=== PATIENT | male | born 1950 | race Caucasian/White ===

== ENCOUNTER 2023-09-10 05:00 | Observation (INO) ==
--- NOTE | 2023-08-15 12:57 | PAT Medication Instructions ---
Medication Instructions Date of Service August 15, 2023 Home Medications atorvastatin 40 mg tablet 40 mg PO HS cholecalciferol (vitamin D3) 125 mcg (5,000 unit) tablet (Vitamin D3) 125 mcg PO Q7D glipizide 10 mg tablet 20 mg PO QAM lisinopril 5 mg tablet 5 mg PO QAM metformin 500 mg tablet 1,000 mg PO BID repaglinide 2 mg tablet 2 mg PO QPM semaglutide 1 mg/dose (2 mg/1.5 mL) subcutaneous pen injector (Ozempic) 1 mg subcut Q7D sodium bicarbonate 650 mg tablet 650 mg PO TID STOP 7 days before surgery semaglutide 1 mg/dose (2 mg/1.5 mL) subcutaneous pen injector (Ozempic) 1 mg subcut Q7D DO NOT take the morning of surgery cholecalciferol (vitamin D3) 125 mcg (5,000 unit) tablet (Vitamin D3) 125 mcg PO Q7D glipizide 10 mg tablet 20 mg PO QAM lisinopril 5 mg tablet 5 mg PO QAM metformin 500 mg tablet 1,000 mg PO BID sodium bicarbonate 650 mg tablet 650 mg PO TID Take evening before surgery atorvastatin 40 mg tablet 40 mg PO HS metformin 500 mg tablet 1,000 mg PO BID repaglinide 2 mg tablet 2 mg PO QPM sodium bicarbonate 650 mg tablet 650 mg PO TID Other Notes NOTHING TO EAT OR DRINK AFTER MIDNIGHT. If you have any questions please call us at [phone] or [phone] or [phone] or [phone]
--- NOTE | 2023-08-18 11:54 | Anesthesiology Consultation ---
Date of Service August 18, 2023 Assessment & Plan (1) Encounter for pre-operative examination: Plan - check BSG am DOS. - PONV: states has received scop in past, states he did not have scop patch for prostatectomy and did well. Independence decision making that anesthesiologist and patient will discuss options for devon-operative management. - Ozempic instructions: Patient takes on (). Patient informed at PAT visit to stop 7 days prior to surgery-voiced understanding. He states that he contacted his PCP and mutual decision making is that last dose will be 09/03/23 and alternative medication was not advised. Patient advised to check with prescriber on instructions on resuming Ozempic. He verbalized full understanding and denied questions or concerns. - Outpatient joint assessment: Patient is currently scheduled for inpatient pathway. If re-evaluated and patient/surgeon requests outpatient pathway, patient is not recommended candidate for outpatient joint program from anesthesia standpoint. Chart Review Chart Review: Acceptable Risk for Surgery and Patient seen in Pre Admission Testing Teaching & Discussion Pre-Anesthesia Teaching/Discussion Notes: Instructed NPO after midnight before surgery, except medications with 15 cc of water. Medication instructions provided according to the PAT guidelines. History Surgery Operation Date: 09/10/23 07:00 Proposed Procedures p Left Total Knee Arthroplasty - Jarrell Gruber MD Height/Weight Height: 5 ft 8 in Weight: 78.2 kg Allergies Allergy/AdvReac Type Severity Reaction Status Date / Time pioglitazone [From Actos] Allergy Intermediate rash Verified 08/15/23 14:37 bee venom protein (honey bee) Allergy Unknown Verified 08/15/23 14:37 ciprofloxacin Allergy Hives Verified 08/14/23 10:07 potassium citrate Allergy hives and Verified 08/14/23 10:07 [From Urocit-K 5] blisters Medications Home Medications Medication Instructions Recorded Confirmed Last Taken atorvastatin 40 mg tablet 40 mg PO HS 08/14/23 08/14/23 Unknown cholecalciferol (vitamin D3) 125 125 mcg PO Q7D 08/14/23 08/14/23 Unknown mcg (5,000 unit) tablet (Vitamin D3) glipizide 10 mg tablet 20 mg PO QAM 08/14/23 08/14/23 Unknown lisinopril 5 mg tablet 5 mg PO QAM 08/14/23 08/14/23 Unknown metformin 500 mg tablet 1,000 mg PO BID 08/14/23 08/14/23 Unknown repaglinide 2 mg tablet 2 mg PO QPM 08/14/23 08/14/23 Unknown semaglutide 1 mg/dose (2 mg/1.5 1 mg subcut Q7D 08/14/23 08/14/23 Unknown mL) subcutaneous pen injector (Ozempic) sodium bicarbonate 650 mg tablet 650 mg PO TID hyperuricemia 08/14/23 08/14/23 Unknown Past Medical History Medical History (Updated 08/18/23 @ 12:11 by Melvi Irizarry PA-C) Diabetes mellitus, type 2 NIDDM Essential tremor stable per pt GERD (gastroesophageal reflux disease) occasional, stable per pt History of blood transfusion 1960s History of COVID-19 07/2022, home test, mild symptoms>no current symptoms History of skin cancer removed rt ear Hx of prostatic malignancy dx 2021, sx tx Hx of renal calculi last episode 10/01 Hypercholesteremia Hypertension controlled, stable per pt Hyperuricemia hx of uremic acid stones Nausea and vomiting after administration of anesthetic agent years ago, no recent issues with recent sx. states has received scop in past, states he did not have scop patch for prostatectomy and did well. Slow to wake up after anesthesia denies re-intubation or unanticipated extended intubation Patient denies h/o stroke, seizures, heart attack, heart failure, or blood clots/DVTs. Exercise / Class Metabolic Activity II 4-5 Yardwork/Stairs/Walk up hill (denies chest discomfort or shortness of breath with 1 FOS) Past Surgical History Surgical History (Updated 08/18/23 @ 12:10 by Melvi Irizarry PA-C) H/O sinus surgery History of prostatectomy robotic procedure; dx cancer 2021, [facility] Hx of colonoscopy Hx of knee surgery x4, 1 open, 3 arthroscopic S/P cystoscopy with ureteral stent placement w/laser lithotripsy of stones Past Anesthesia History Other (slow to wake after anesthesia; patient unsure of daughter's devon- operative considerations-I contacted the daughter who states she has been told she has a difficult airway and I could access her chart: difficult airway is noted on her chart.) History of PONV History of PONV (states has received scop in past, states he did not have scop patch for prostatectomy and did well.) and Hx of Motion Sickness Social History Smoking Status: Never smoker Do You Dip or Chew Tobacco: No Hx Alcohol Use: Yes Alcohol type: beer alcohol intake frequency: holidays/special occasions only Hx Substance Use: No substance use type: does not use Review of Systems Patient denies chest pain, shortness of breath, dyspnea on exertion, snoring, witnessed apneas, fever, chills, cough, wheezing, or palpitations. Physical Exam Vital Signs Vitals BP 146/80 P 79 TEMP 97.9 SP02 97% on RA RESP 17 Physical Patient resting comfortably in chair in no acute distress, alert and oriented, responding appropriately throughout visit Full cervical extension range of motion without pain TMD 3.5 finger breadths Mallampati Score 2 Dentition: intact, denies chipped or loose teeth, caps/crowns, implants or bridges Lungs: normal respiratory effort. Good air movement, clear throughout to auscultation, no adventitious breath sounds Cardiac: regular rate and rhythm, no murmurs noted Carotid arteries: negative bruit bilat Lab Results Anesthesia Preop Results Results Anesthesia Widget: WBC 6.92 K/ul (4.8-10.8) 08/18/23 Hgb 13.1 g/dl (14.0-18.0) L 08/18/23 Hct 38.7 % (42.0-52.0) L 08/18/23 Plt 178 K/uL (130-400) 08/18/23 Na 138 mmol/L (136-145) 08/18/23 K 4.4 mmol/L (3.5-5.1) 08/18/23 Cl 104 mmol/L (98-107) 08/18/23 CO2 27 mmol/L (21-32) 08/18/23 BUN 18 mg/dl (6-23) 08/18/23 Creat 0.91 mg/dl (0.6-1.4) 08/18/23 Glucose Level 222 mg/dl (70-99(Fasting)) H 08/18/23 PT 11.1 Seconds (9.0-12.0) 08/18/23 PTT 26.2 Seconds (21.0-31.0) 08/18/23 INR 1.0 (0.9-1.1) 08/18/23 Urine Color Yellow 08/18/23 Urine Appearance Clear (Clear) 08/18/23 Urine pH 5.0 (4.5-7.5) 08/18/23 Urine Specific [place] 1.024 (1.000-1.030) 08/18/23 Urine Protein Negative (Negative) 08/18/23 Urine Glucose (UA) 3+ (Negative) H 08/18/23 Urine Ketones Negative (Negative) 08/18/23 Urine Blood Negative (Negative) 08/18/23 Urine Nitrite Negative (Negative) 08/18/23 Urine Bilirubin Negative (Negative) 08/18/23 Urine Urobilinogen Negative (Negative) 08/18/23 Urine Leukocyte Esterase Negative (Negative) 08/18/23 Blood Type O Negative 08/18/23 Antibody Screen NEGATIVE 08/18/23 Testing Electrocardiogram Date: 08/18/23 NSR, rate 76 bpm Chest X-Ray Date: 08/18/23 No acute process
[2023-09-10] MEDS ORDERED: LR 500ML BOLUS, THEN 15ML/HR IV SCH (06:00)
[2023-09-10] MEDS ORDERED: ROPIVACAINE 0.5% HCL/PF 150 MG, BUPIVACAINE 0.75% MPF 20 ML, EPINEPHrine 0.15 MG, Ketor... INFIL SCH (06:00)
[2023-09-10] MEDS ORDERED: ceFAZolin 2000MG 2,000 MG/15 ML SYR IV SCH (06:00)
[2023-09-10] MEDS ORDERED: TRANEXAMIC ACID 1,000 MG **IV Pre-op IV SCH (06:00)
[2023-09-10] MEDS ORDERED: LR 60ML/HR IV SCH (06:00)
[2023-09-10] MEDS ORDERED: ORTHO JOINT ANESTHETIC ONE (06:31)
--- NOTE | 2023-09-10 06:31 | History & Physical Bridge Note ---
Date of Service September 10, 2023 History & Physical Bridge Note I have examined the patient, reviewed the History & Physical and in the interval since the performance of the History & Physical I have noted the following changes of clinical significance:consent and site obtained and verified. no changes noted
[2023-09-10] MEDS ORDERED: BUPIVACAINE 0.5 % 5 MG/1 ML PF 10ML VIAL ONE (06:33)
[2023-09-10] MEDS ORDERED: PROPOFOL IV EMULSION 10 MG/ML 20 ML VIAL IV ONE (06:33)
[2023-09-10] MEDS ORDERED: MIDAZOLAM HCL 1 MG/ML 2ML VIAL ONE (06:33)
[2023-09-10] MEDS ORDERED: fentaNYL citrate PF 100 MCG/2 ML VIAL ONE (06:33)
[2023-09-10] MEDS ORDERED: EPINEPHrine INJ 1 MG/ML AMP ONE (06:33)
[2023-09-10] MEDS ORDERED: ROPIVACAINE 0.5% 5 MG/ML 30 ML VIAL ONE (06:34)
[2023-09-10] MEDS ORDERED: HYDROmorphone INJ 1 MG/ML SYRINGE IV PRN (06:59)
[2023-09-10] MEDS ORDERED: NALOXONE HCL 0.4 MG/1 ML VIAL/CARP IV PRN ×2 (06:59→10:29)
[2023-09-10] MEDS ORDERED: fentaNYL citrate PF 100 MCG/2 ML VIAL IV PRN (06:59)
[2023-09-10] MEDS ORDERED: ATROPINE SULFATE 0.1 MG/ML 10ML SYR IV PRN (06:59)
[2023-09-10] MEDS ORDERED: FLUMAZENIL 0.1 MG/1 ML 10 ML VIAL IV PRN (06:59)
[2023-09-10] MEDS ORDERED: PROMETHAZINE HCL 12.5 MG in SODIUM CHLORIDE 0.9% 50 ML IV PRN (06:59)
[2023-09-10] MEDS ORDERED: ePHEDrine sulfate 50 MG/ML AMP IV PRN (06:59)
[2023-09-10] MEDS ORDERED: TRANEXAMIC ACID / 0.7% NACL 1000MG/100ML BAG IV ONE (07:23)
[2023-09-10] MEDS ORDERED: ONDANSETRON INJ 2 MG/ML 2 ML VIAL ONE (07:23)
[2023-09-10] MEDS ORDERED: TRANEXAMIC ACID / 0.7% NACL 1,000 MG/100 ML BAG IV SCH ×2 (07:32→15:00)
[2023-09-10] MEDS ORDERED: PHENYLEPHRINE 100MCG/ML 5ML SYR ONE (08:02)
[2023-09-10] MEDS ORDERED: TRANEXAMIC ACID 100 MG/ML 10 ML VIAL IV ONE (08:16)
--- NOTE | 2023-09-10 08:28 | Post Operative Brief Note ---
Immediate Post Op Note v1 Date of Surgery September 10, 2023 Pre & Post Diagnosis Operation Date: 09/10/23 07:00 Pre-Op Diagnosis: Left Knee Degenerative Joint Disease Post-Op Diagnosis: Left Knee Degenerative Joint Disease I identified the patient and participated in the time-out.: Yes Procedure Operation Date: 09/10/23 07:00 Actual Procedures p Left Total Knee Arthroplasty(Left) - Jarrell Gruber MD Surgeon Jarrell Gruber MD [employer] [facility] Est[facility] Blood Loss 25 Findings Consistent with Post-Op Diagnosis Severe lateral compartment disease severe patellofemoral disease moderate medial disease Fluids See anesthesia record Complications None
--- NOTE | 2023-09-10 08:33 | Operative Report ---
Post Operative Report Pre & Post Diagnosis Operation Date: 09/10/23 07:00 Pre-Op Diagnosis: Left Knee Degenerative Joint Disease Post-Op Diagnosis: Left Knee Degenerative Joint Disease I identified the patient and participated in the time-out.: Yes Procedure Operation Date: 09/10/23 07:00 Actual Procedures p Left Total Knee Arthroplasty(Left) - Jarrell Gruber MD Surgeon Jarrell Gruber MD Hide And Skin Classer Janice Estimated Blood Loss 25 Findings Consistent with Post-Op Diagnosis Severe disease laterally and in the patellofemoral joint moderate disease medially flexion contracture of about 10 degrees Fluids See anesthesia report Specimens Bone Drains None Complications None Indications Severe pain and limitations of motion Description of Procedure After the patient was appropriate notified site verify consent verified the left lower extremity was examined revealing flexion contracture 10 degrees flexion to 105 degrees stable ligaments marked the skin was healthy. He was then prepped and draped use routine fashion. Tourniquet was inflated to 275 mmHg after exsanguination limb with a rubber band for total of 50 minutes. Midline exposure was utilized parapatellar throughout any performed synovectomy completed. There was marked incarceration of the patellofemoral joint as needed required releasing of all the soft tissue once this was done the patella could be everted the knee could be flexed. Synovectomy was completed. Osteophytes resected. Cruciates resected tibia subluxated membrane and menisci resected. Distal femur was then resected 14 mm proximal tibia 4 mm. The tibia was sized anywhere from a 4 to a 3. The femur was then sized it was very wide medial laterally but narrow anterior to posterior so 2-1/2 was selected so the notch the anterior cortex of the femur. Once this was done the extension gap was checked after the 4 mm of the left proximal tibia were resected and it was noted to be excellent. Once that was set the remaining anterior posterior, chamfer cuts were then made and the flexion gap checked and was excellent. Box cut was then made to size 2 half femur fit well. The tibia was then selected for size 3 so it would match the femur with a 2-1/2 spacer. Some osteophytes along the medial margin were then resected. Size 3 was then reduced with a 2-1/2 spacer 10 mm thick in the alignment the leg was excellent the flexion gap was excellent the flexion stability was excellent the patella tracked well. The patella was resected leaving 14 mm a 38 seating trial placed. It tracked well. Knee was then injected with Ortho mix about the knee irrigated with Betadine and Pulsavac and then a permanent cemented into position tibia femur patella in that order a 12 minutes the tourniquet was deflated at 14 minutes the knee was inspected for cement removal which did not require any. Some bone wax was placed about the exposed bone medially laterally on the femur due to the need for 2-1/2 size. There was minimal bleeding. EBL was roughly 25 cc crystalloid per anesthesia bone pathology pending. After 12 minutes again the tourniquet was deflated after 40 minutes everything was inspected. Summary of implant size 2 and half left femur posterior cruciate substituting size 2-1/2 tibial insert 10 mm thick size 3 mobile-bearing tray patella is a size 38 2 bags of Palacos G cement. DVT prophylaxis per protocol. I attest to the content of the Intraoperative Record and any orders documented therein. Any exceptions are noted below.
--- NOTE | 2023-09-10 08:36 | Discharge Summary ---
Date of Service September 11, 2023 Admission HPI Per Admitting Provider Severe left knee pain greater than right knee pain x-rays with severe disease bilaterally. Principal Diagnosis Osteoarthritis left knee with flexion contracture Discharge Data Allergies Allergy/AdvReac Type Severity Reaction Status Date / Time bee venom protein (honey bee) Allergy Severe anaphyllact Verified 09/10/23 05:42 ics pioglitazone [From Actos] Allergy Intermediate rash Verified 09/10/23 05:42 ciprofloxacin Allergy Hives Verified 09/10/23 05:42 potassium citrate Allergy hives and Verified 09/10/23 05:42 [From Urocit-K 5] blisters Vaccinations None Consultations None Procedures Performed Operation Date: 09/10/23 07:00 Actual Procedures p Left Total Knee Arthroplasty cemented (Left) - Jarrell Gruber MD Ordered Studies 09/10/23 05:00 US - OR guided needle placemen Routine Hospital Course (1) Status post left knee replacement: Home with services Plan Hospital course for a total knee replacement was discharged with services. DVT prophylaxis per protocol. Likely discharge tomorrow if does well overnight Total Time Total Time Spent Total Time Spent (In Minutes): 5 minutes Discharge Plan Discharge Items Patient Disposition: Home - Home Health Services Reason For Visit: Left Knee Degenerative Joint Disease Discharge Diagnosis: Left knee s/p total knee replacement Condition on Discharge: Good Activity: Per Instructions section Lifting: Wait until after follow-up appointment Bathing: Keep incision dry Exercise/Sports: Wait until after follow-up appointment Driving/Machine Use: No driving until cleared by Dr. Gruber Weightbearing: Full weightbearing Non-emergency contact: Surgeon Call non-emergency contact if: you have any medication questions, your pain is not controlled, your temperature is above 101, your wound has increased redness, your wound has increased drainage and your wound pain has increased Follow-up/Referrals: Disha Eduardo MD [Primary Care Provider] - Diet: Carb Count or DM1 Addtl Attending Provider Instructions: New Medicine: * You will likely be taking one or more of these medications: 1. Percocet - Take, as directed, when you need it, every four to six hours to control your pain. 2. Iron Sulfate - Take 1x each day for the month after surgery to help you replace the blood lost during surgery. 3. Eliquis - Thins your blood to lessen the chance of forming a blood clot. * The most common side effects of pain medicine and iron are nausea and constipation. If nausea or constipation is too much of a problem or if you have any questions about your new medicines or doses, call [facility] at . We will try to help you manage these issues. "VERY IMPORTANT TO READ AND REVIEW" Blood Clots and Blood Thinning Medicine: * You are given Eliquis during the immediate post-operative period to lessen the risk of blood clots forming in your legs and/or lungs. It is usually given for six weeks after surgery. Pain: * The immediate post-operative period after knee replacement surgery is often quite painful. * You are given a prescription for pain medicine. You should take it, as directed, when you need it, especially before physical therapy and before going to bed. Pain that interferes with sleep is very common and can last several months. * You will likely need pain medicine for the first four to six weeks. It will not stop all of the pain. The pain will lessen and as you feel better, you may change to milder pain medicine such as Tylenol. * The most common side effects of pain medicine are nausea and constipation, so don't take more than you need. Physical Therapy: * You will have physical therapy two or three times each week for four to six weeks after your surgery in order to regain your knee range of motion and to retrain your knee to work properly. * It is just as important to make sure you are getting your knee perfectly straight as it is to regain your knee bend. * Taking a pain pill an hour before therapy can help you have a more productive and comfortable therapy session if needed. Home Exercise: * You were shown a series of exercises (heel props, heel slides, etc.) in the hospital. Do these exercises three to four times each day including the exercises you were shown in physical therapy. Walking: * Get up and walk several times each day. For the first four weeks, try not to stand or walk for more than one hour at a time. If you do stand or walk for more than one hour, you will not hurt anything, but your knee and leg will likely swell. * As you feel comfortable, you may change from the walker or crutches to a cane and then to independent walking. SELF CARE INSTRUCTIONS AFTER TOTAL KNEE REPLACEMENT A. You may need to continue a physical therapy program after discharge from the hospital. There are several options available to you. Your doctor will assist you in selecting the best one for you. 1. An out-patient facility 2 to 3 times a week for therapy or home therapy. 2. Continue working on all exercises taught to you in the hospital. Your goals should be to increase bending of your knee to 90 degrees and beyond and to fully straighten your knee. B. You may progress at your own pace from walking with a walker or crutches to a cane; then to no assistive devices. C. Make walking a part of your daily routine. Be up as much as comfortable with rest periods throughout the day. Rest with leg elevation is very important. Use the ice wrap frequently for the first 3-4 weeks. D. There are no restrictions on activities. You may ride in a car, shop, p articipate in wood router hand and all social activities. E. Wear the long elastic stockings (YASMEEN hose) 20 hours a day for six weeks after surgery. They can be removed several times a day for laundering and for a shower. F. Do not place a pillow behind your knee when resting. A pillow at your ankle is okay. VERY IMPORTANT TO READ AND REVIEW A. Take Eliquis(blood thinning medication) as directed by your doctor. B. There are a few signs you need to watch for after you are home. Call [facility] if you notice any of the followin. Increased severe knee pain. Some pain is expected especially when you exercise. 2. Increased swelling in your leg or knee; pain or swelling of the calf muscle in either lower leg. 3. Any fluid drainage from the incision. 4. Shortness of breath or chest pain. C. Please call [facility] at if you have any concerns or questions about your operation or recovery. The doctor or his nurse will return your call promptly. D. You must take antibiotics before dental work, bladder, bowel or other surgery. Call the office to obtain a prescription at least 2 days prior to your appointment. * CALL IF INCREASED PAIN, REDNESS, DRAINAGE OR FEVER GREATER THAT 101. * Sutures should be removed 15 days after surgery unless you are on chronic steroids, then it will be 15-18 days after surgery. Call your doctor if: * Temperature above 101 degrees F. * Pain not relieved by pain medicine ordered. * Increased drainage or redness from incision. * Notify your doctor with any questions or concerns. Pending Studies at Discharge: Yes (Bone pathology) Stand-Alone Forms: [facility], Smoking Cessation Medications and DC Order Prescriptions: No Action atorvastatin 40 mg Tablet 40 mg PO HS metformin 500 mg Tablet 1,000 mg PO BID repaglinide 2 mg Tablet 2 mg PO QPM Patient Comments: w/supper Rx Instructions: administer within 30 minutes of a meal or snack glipizide 10 mg Tablet 20 mg PO QAM sodium bicarbonate 650 mg Tablet 650 mg PO TID lisinopril 5 mg Tablet 5 mg PO QAM cholecalciferol (vitamin D3) [Vitamin D3] 125 mcg (5,000 unit) Tablet 125 mcg PO Q7D Patient Comments: mondays w/supper Ozempic 1 mg/dose (2 mg/1.5 mL) Pen Injector 1 mg SUBCUT Q7D Patient Comments: Admission Data Admit Date/Time: 09/10/23 08:48 Attending Provider: Jarrell Gruber Admit Provider: Jarrell Gruber Primary Care Provider: Disha Eduardo
--- NOTE | 2023-09-10 08:37 | Orthopedic Progress Note ---
Date of Service September 10, 2023 Assessment & Plan (1) Status post left knee replacement: Plan: Home with services Admission and Anticipated Discharge Date Admission Date: Anticipated discharge date 10-02 Orthopedic Progress Note Did well tolerated total knee replacement well was awake and alert. Neurovascular check is limited by spinal. Vital signs are stable. Denies chest pain shortness of breath fever chills nausea vomiting or headache. Doing well status post total knee replacement check x-ray in recovery room.
--- NOTE | 2023-09-10 08:39 | Operative Report ---
Post Operative Report Pre & Post Diagnosis Operation Date: 09/10/23 07:00 Pre-Op Diagnosis: Left Knee Degenerative Joint Disease Post-Op Diagnosis: Left Knee Degenerative Joint Disease I identified the patient and participated in the time-out.: Yes Procedure Operation Date: 09/10/23 07:00 Actual Procedures p Left Total Knee Arthroplasty(Left) - Jarrell Gruber MD Surgeon TIANA Gruber MD Social Services Counselor Janice ROMO Estimated Blood Loss 25 Findings Consistent with Post-Op Diagnosis see operative report Specimens see operative report Drains none Complications none Disposition Accompanied Patient To Recovery: Yes Indications This 73 year old male presented to the office complaints of persisting left knee pain. He had tried conservative care measures including injection therapy, without improvement. He elected to proceed with surgical intervention after being educated about potential risks and outcomes. Preoperative imaging was obtained. Description of Procedure The patient was administered a spinal anesthetic and then taken to the operating room where he was given sedation. He was prepped and draped in the usual s terile fashion. Please see Dr. Gruber's operative report for specifics of the procedure. I was present for the entire case from initial patient positioning through final wound closure. Assistance was provided in tissue retraction, hemostasis, trial implant placement, final implant placement, and final wound closure. The patient was taken to the recovery room in satisfactory condition. I attest to the content of the Intraoperative Record and any orders documented therein. Any exceptions are noted below.
--- NOTE | 2023-09-10 09:23 | Anesthesiology Progress Note ---
Date of Service September 10, 2023 Anesthesia Post Procedure Vital Signs Vital Signs: Temp Pulse Resp BP Pulse Ox O2 Del Method O2 Flow Rate 09/10/23 09:05 68 15 102/59 L 98 Nasal Cannula 2 09/10/23 08:55 71 18 101/55 L 95 Room Air 09/10/23 08:45 73 15 111/65 95 Room Air 09/10/23 08:37 36.2 C L 79 12 110/66 96 Room Air 09/10/23 05:25 36.5 C 78 20 135/77 99 Room Air Pain Intensity Left Knee: Pain Intensity: 0 Transfer of Care Handoff Completed per policy Notes Mental Status: alert / awake / arousable Patient Amnestic to Procedure: Yes Nausea / Vomiting: adequately controlled Pain: adequately controlled Airway Patency, RR, SpO2: stable & adequate BP & HR: stable & adequate Hydration State: stable & adequate Neuraxial Anesthesia: was administered and sensory block is resolving Anesthetic Complications: no major complications apparent
--- NOTE | 2023-09-10 09:33 | XRay Report ---
TWO VIEWS LEFT KNEE CLINICAL HISTORY: Postoperative examination. FINDINGS: AP and crosstable lateral portable views of the left knee are obtained. A left knee arthrop lasty is in near anatomic alignment. There has been undersurface remodeling of the patella. No acute fracture is seen. There are expected postoperative changes around the knee including skin clips, soft tissue edema, and subcutaneous gas. IMPRESSION: Expected postoperative changes status post left knee arthroplasty. No acute fracture is s een. ACT 112: Negative or not required by law. Electronically signed by: Bartolo Martin M.D. 09/10/2023 9:30 AM
[2023-09-10] MEDS ORDERED: HYDROmorphone INJ 0.5 MG/0.5 ML SYR IV PRN (10:29)
[2023-09-10] MEDS ORDERED: ALUMINUM/MAGNESIUM SUSP 30 ML UDC PO PRN (10:29)
[2023-09-10] MEDS ORDERED: MAGNESIUM HYDROXIDE SUSP 30 ML UDC PO PRN (10:29)
[2023-09-10] MEDS ORDERED: bisacodyL 10 MG SUPP PR PRN (10:29)
[2023-09-10] MEDS ORDERED: ONDANSETRON INJ 2 MG/ML 2 ML VIAL IV PRN (10:29)
[2023-09-10] MEDS ORDERED: oxyCODONE HCL IR 5 MG TAB (IMMEDIATE RELEASE) PO PRN (10:29)
[2023-09-10] MEDS ORDERED: METOCLOPRAMIDE HCL INJ 5 MG/ML 2 ML VIAL IV PRN (10:29)
[2023-09-10] MEDS ORDERED: TAMSULOSIN HCL 0.4 MG CAP PO PRN (10:29)
[2023-09-10] MEDS ORDERED: diphenhydrAMINE 50 MG/ML VIAL IV PRN (10:29)
[2023-09-10] MEDS ORDERED: PHARMACY GLYCEMIC MGMT CONSULT PRN (10:29)
[2023-09-10] MEDS ORDERED: SODIUM CHLORIDE 0.9% 1,000 ML IV SCH (10:50)
[2023-09-10] MEDS: KETOROLAC TROMETHAMINE 15 MG/ML VIAL IV SCH ×3 (11:23→21:50)
[2023-09-10] MEDS: lisinopril 5 MG TAB PO SCH (11:38)
[2023-09-10] MEDS: DOCUSATE SODIUM 100 MG CAP PO SCH ×2 (11:39→19:41)
[2023-09-10] MEDS: MULTIVITAMIN TAB PO SCH (11:39)
[2023-09-10] MEDS: SODIUM BICARBONATE 650 MG TAB PO SCH ×3 (11:39→19:41)
[2023-09-10] MEDS: INSULIN ASPART PER UNIT CHARGE SC SCH ×3 (12:28→21:39)
[2023-09-10] MEDS: ACETAMINOPHEN 500 MG TAB PO SCH ×2 (13:22→21:49)
[2023-09-10] MEDS ORDERED: ORTHO WARFARIN NOMOGRAM SCH (14:00)
[2023-09-10] MEDS: ceFAZolin 2000MG 2,000 MG/15 ML SYR IV SCH ×2 (14:09→21:50)
--- NOTE | 2023-09-10 14:48 | Pharmacy Report ---
Pharmacy Glycemic Short Note 2 - Date of Service September 10, 2023 - Glycemic Short BSG Results (Last 24 hours): 09/10/23 09/10/23 09/10/23 05:27 08:39 10:47 POC Glucose 87 88 117 H OUTPATIENT ANTIDIABETIC REGIMEN: * Repaglinide 2mg (1 with breakfast, 1 with lunch, 2 with dinner) * Glipizide XL 10mg #2 QAM * Ozempic 1mg Q7d (through patient assistance) * metformin 500mg ER QAM ASSESSMENT: * Devan is a 73 YOM admitted s/p L TKA with a history of T2DM. Pharmacy has been consulted for glycemic management while inpatient. * Fasting BSG below goal range this AM, Ancef and ortho mix given during procedure, will add Lantus scale at bedtime for hyperglycemia * Initiated Novolog at a weight based stress of 2-3 PLAN FOR INPATIENT GLYCEMIC CONTROL: * Hold outpatient oral diabetes medications * Basal insulin * Lantus 0-10 units HS * Bolus insulin * NovoLog per scale ACHS or Q6hrs while NPO * Goal Range: Low 110 mg/dL - High 140 mg/dL * Correction Factor: 30 mg/dL/unit * Nutritional / Prandial insulin per carb ratio of 1 unit per 7 grams CHO consumed
--- NOTE | 2023-09-10 14:52 | Orthopedic Progress Note ---
Date of Service September 10, 2023 Assessment & Plan (1) Status post left knee replacement: Plan: Home with services Admission and Anticipated Discharge Date Admission Date: September 10, 2023 Orthopedic Progress Note Afternoon rounds check. He is doing well denies any real pain. He does note that the spinal was still not completely worn off. He is now able to lift his right leg is just starting to be able to lift his left leg. Still has weak dorsiflexion. Has tingling in the left leg greater than right leg but is diminishing. He denies any chest pain shortness of breath fever chills nausea vomiting or headache. Postop x-rays look excellent. Assessment doing well status post left total knee replacement spinal was taking its time to wear off. We will continue to wait to happen before we get him up and moving. He can start his bending exercises and his heel roll exercises to get his leg straight. We will saline lock his IV since he is doing well eating and drinking. Did well tolerated total knee replacement well was awake and alert. Neurovascular check is limited by spinal. Vital signs are stable. Denies chest pain shortness of breath fever chills nausea vomiting or headache. Doing well status post total knee replacement check x-ray in recovery room.
[2023-09-10] MEDS ORDERED: WARFARIN SOD 5 MG TAB PO SCH (16:00)
[2023-09-10] MEDS: ASCORBIC ACID 500 MG TAB PO SCH (16:40)
[2023-09-10] MEDS: FERROUS GLUCONATE 324 MG TAB PO SCH (16:40)
[2023-09-10] MEDS ORDERED: SENNA 8.6 MG TAB PO SCH (21:00)
[2023-09-10] MEDS ORDERED: LANTUS PER UNIT CHARGE SC SCH (21:00)
[2023-09-10] MEDS ORDERED: ATORVASTATIN 40 MG TAB PO SCH (21:00)
[2023-09-11] MEDS: ACETAMINOPHEN 500 MG TAB PO SCH (05:06)
[2023-09-11] MEDS: KETOROLAC TROMETHAMINE 15 MG/ML VIAL IV SCH (05:06)
[2023-09-11 06:41] LABS: Hematocrit (blood only) 31.5 % (42.0-52.0); Hemoglobin 10.9 g/dl (14.0-18.0); Mean Corpuscular Hemoglobin 30.2 pg (25.0-34.0); Mean Corpuscular Hgb Conc 34.6 g/dL (32.0-36.0); Mean Corpuscular Volume 87.3 fL (80.0-100.0); Platelet Count 140 K/uL (130-400); RDW Coefficient of Variation 13.2 % (11.5-14.5); RDW Standard Deviation 41.9 fL (36.4-46.3); Red Blood Count 3.61 M/uL (4.70-6.10); White Blood Count 12.16 K/ul (4.8-10.8)
[2023-09-11 06:58] LABS: BUN Creatinine Ratio 20.7 (10-20); Calcium 8.9 mg/dl (8.6-10.3); Creatinine Clr Calc Pharmacy 71.3 ml/min; Est GFR (African American) 96.6 ml/min; Est GFR (Non-African American) 83.4 ml/min; Potassium 4.2 mmol/L (3.5-5.1)
--- NOTE | 2023-09-11 07:35 | Orthopedic Progress Note ---
Date of Service September 11, 2023 Assessment & Plan (1) Status post left knee replacement: Plan: Home with services Plan Hospital course for a total knee replacement was discharged with services. DVT prophylaxis per protocol. Likely discharge tomorrow if does well overnight Admission and Anticipated Discharge Date Admission Date: September 10, 2023 Orthopedic Progress Note Postop day #1 status post left total knee replacement patient is doing well denies any chest pain shortness of breath fever chills nausea vomiting headache. Vital signs are stable he is afebrile. Neurovascular check femoral sciatic nerve is normal. Wound dressing clean dry and intact. Can do straight leg raise. Can do ankle pumps and extend and plantarflex toes. A.m. labs are good hematocrit stable at 31. Assessment doing well status post left total knee replacement continue with postop care pathway start Eliquis this morning. Dressing change later today this morning by PA. Discharge this morning after PT OT. Afternoon rounds check. He is doing well denies any real pain. He does note that the spinal was still not completely worn off. He is now able to lift his right leg is just starting to be able to lift his left leg. Still has weak dorsiflexion. Has tingling in the left leg greater than right leg but is diminishing. He denies any chest pain shortness of breath fever chills nausea vomiting or headache. Postop x-rays look excellent. Assessment doing well status post left total knee replacement spinal was taking its time to wear off. We will continue to wait to happen before we get him up and moving. He can start his bending exercises and his heel roll exercises to get his leg straight. We will saline lock his IV since he is doing well eating and drinking. Did well tolerated total knee replacement well was awake and alert. Neurovascular check is limited by spinal. Vital signs are stable. Denies chest pain shortness of breath fever chills nausea vomiting or headache. Doing well status post total knee replacement check x-ray in recovery room.
--- NOTE | 2023-09-11 07:36 | Operative Report ---
Post Operative Report Procedure Date: September 11, 2023 Pre & Post Diagnosis: Addendum to previous operative report pre and postop diagnosis same osteoarthritis] Time Out: I identified the patient and participated in the time-out. Procedure: [Cemented left total knee replacement] Surgeon: Aviva] Production Machine Shop Supervisor: Janice no resident or fellow available [] Estimated Blood Loss: See previous report [] Findings: [See previous report] Specimens: [See previous report] Description of Procedure: [See previous report] Attestation: I attest to the content of the Intraoperative Record and any orders documented therein. Any exceptions are noted below.
[2023-09-11] MEDS: lisinopril 5 MG TAB PO SCH (08:35)
[2023-09-11] MEDS: INSULIN ASPART PER UNIT CHARGE SC SCH (08:35)
[2023-09-11] MEDS: FERROUS GLUCONATE 324 MG TAB PO SCH (08:36)
[2023-09-11] MEDS: MULTIVITAMIN TAB PO SCH (08:37)
[2023-09-11] MEDS: DOCUSATE SODIUM 100 MG CAP PO SCH (08:37)
[2023-09-11] MEDS: SODIUM BICARBONATE 650 MG TAB PO SCH (08:38)
[2023-09-11] MEDS: ASCORBIC ACID 500 MG TAB PO SCH (08:38)
[2023-09-11] MEDS ORDERED: APIXABAN 2.5 MG TAB PO SCH (09:00)
--- NOTE | 2023-09-11 09:00 | Orthopedic Progress Note ---
Date of Service September 11, 2023 Assessment & Plan (1) Status post left knee replacement: Plan: The patient was educated regarding today's findings. Conservative care measures were discussed. His knee dressing was changed by me. He will leave this in place until Friday. It can be changed by home health at that point if there is soiling. It can also be left in place. Importance of keeping dressing dry was discussed. Konstantin stocking was applied. Written discharge instructions were provided. Prescription for Percocet 5/325 mg and Eliquis 2.5 mg were sent to his pharmacy. Follow-up in the office with me in 2 weeks as scheduled for staple removal. Importance of using his knee immobilizer today and tomorrow was discussed. It can be discontinued entirely on Friday morning. Admission and Anticipated Discharge Date Admission Date: September 10, 2023 Subjective This 73-year-old male is seen today in his room. He is 1 day status post left total knee arthroplasty. He states he is doing well. He feels ready to go home. He has already been out of bed and walking in the hallway. He denies any chest pain, shortness of breath, nausea, vomiting, abdominal pain, or significant knee pain. He states his block did not wear off until late yesterday afternoon. No additional complaints. His daughter is present today. Review of Systems Review of Systems: unchanged from yesterday Physical Exam Physical Exam: General: Well-developed, well-nourished, elderly male, in no acute distress. Sitting in a bedside chair. Alert and oriented. Skin: Warm dry with good turgor. He has a postsurgical dressing in place on the left knee. Upon removal, there is a small amount of bloody drainage on the innermost dressings. There is no active bleeding from his wound. [place] are in place. Wound edges are well approximated. Minimal postoperative edema. No ecchymosis. Musculoskeletal: The patient has intact motor function of his hip, knee, and ankles. He is able to get himself out of the chair without difficulty. He is able to stand with his walker. He can perform a straight leg raise. He has full terminal extension. Flexion to around 60 degrees with ease. Neurologic: Gross sensation is intact across the left leg by soft touch. Peripheral pulses are 2+. Results & Data Vital Signs (Past 12 Hours) Vital Signs Temp Pulse Resp BP BP Pulse Ox O2 Del Method 09/11/23 07:45 36.5 C 73 14 116/64 96 Room Air 09/11/23 03:55 36.3 C L 75 16 108/64 97 Room Air 09/10/23 21:53 36.3 C L 68 18 127/68 97 Room Air Laboratory Results CBC obtained today shows a white count of 12.16. H&H of 10.9 and 31.5. Platelets 140,000. Sodium 137, potassium 4.2, chloride 106, anion gap of 6. BUN 19 and creatinine 0.92. Blood sugar this morning was 137.
[2023-09-11 09:27] LABS: Estimated Average Glucose 140 mg/dl; Hemoglobin A1C 6.5 % (4.5-5.6)
--- NOTE | 2023-09-11 09:59 | Operative Report ---
Post Operative Report Pre & Post Diagnosis Operation Date: 09/10/23 07:00 Pre-Op Diagnosis: Left Knee Degenerative Joint Disease Post-Op Diagnosis: Left Knee Degenerative Joint Disease I identified the patient and participated in the time-out.: Yes Procedure Operation Date: 09/10/23 07:00 Actual Procedures p Left Total Knee Arthroplasty(Left) - Jarrell Gruber MD Surgeon Jarrell Gruber MD Clothing Consultant Janice ROMO Estimated Blood Loss 25 Findings Consistent with Post-Op Diagnosis Specimens bone Complications none Indications pain Description of Procedure see other report I attest to the content of the Intraoperative Record and any orders documented therein. Any exceptions are noted below.
--- NOTE | 2023-09-11 10:19 | Operative Report ---
Post Operative Report Pre & Post Diagnosis Operation Date: 09/10/23 07:00 Pre-Op Diagnosis: Left Knee Degenerative Joint Disease Post-Op Diagnosis: Left Knee Degenerative Joint Disease I identified the patient and participated in the time-out.: Yes Procedure Operation Date: 09/10/23 07:00 Actual Procedures p Left Total Knee Arthroplasty(Left) - Jarrell Gruber MD Surgeon Jarrell Gruber MD Power Saw Operator Janice ROMO Estimated Blood Loss 25 Findings Consistent with Post-Op Diagnosis severe djd Specimens bone Drains none Complications none Indications pain/deformity Description of Procedure see other note I attest to the content of the Intraoperative Record and any orders documented therein. Any exceptions are noted below.
--- OUTSIDE RECORDS SUMMARY | 2023-09-17 17:10 | External Medical Summary | Continuity of Care Document ---
Author Name Unknown Organization [id number] Address [address] [place] [id number] Care Team Providers Care Public Service Representative Name Role Phone Disha Eduardo Primary Care Physician [phone] Encounter [facility] [id number] Date(s): 08/18/23 - 08/18/23 [facility] [address] [place], [place] [address] [address] [place] [id number] Encounter Diagnosis Bilateral primary osteoarthritis of knee(Discharge Diagnosis) - 08/18/23 Discharge Disposition: Home or Self Care Attending Physician: DEMETRIUS Camacho, Mohan Crocker Referring Physician: MD Gruber Wayne J Allergies, Adverse Reactions, Alerts Substance Reaction Severity Status ciprofloxacin Unknown Active Urocit-K hives Active Bee stings severe Severe Active Medications atorvastatin Start: 06/29/20 14:48:00 EDT Start Date: 06/29/20 Status: Ordered EpiPen 2-John Start: 11/22/19 10:51:00 EST Start Date: 11/22/19 Status: Ordered Euflexxa 10 mg/mL intra-articular solution Start: 06/18/21 9:15:00 EDT, 25 mg =, intra-articular, q7days, Disp# 2 mL Start Date: 06/18/21 Status: Ordered Euflexxa 10 mg/mL intra-articular solution Start: 09/30/22 10:35:00 EST, 20 mg =, intra-articular, q7days, Disp# 12 mL, Refills: 0, bilateral knees series of 3 Start Date: 09/30/22 Status: Ordered glipiZIDE 10 mg oral tablet, extended release Start: 11/22/19 10:52:00 EST, 1 tab, PO, Daily Start Date: 11/22/19 Status: Ordered lisinopril 5 mg oral tablet Start: 11/22/19 10:52:00 EST, 1 tab, PO, Daily Start Date: 11/22/19 Status: Ordered metFORMIN 500 mg oral tablet Start: 11/22/19 10:51:00 EST, 2 tab, PO, bid Start Date: 11/22/19 Status: Ordered Ozempic Start: 08/18/23 11:03:00 EDT Start Date: 08/18/23 Status: Ordered repaglinide Start: 06/29/20 14:48:00 EDT Start Date: 06/29/20 Status: Ordered sodium bicarbonate 650 mg oral tablet Start: 11/22/19 10:51:00 EST Start Date: 11/22/19 Status: Ordered Mental Status 08/18/23 Barriers to Learning one year None evide nt Mandatory Health Literacy Documentation Yes Health Literacy Communication Barriers N ever Primary Language Slovenian Problem List Condition Confirmation Course Effective Dates Status H ealth Status Informant Bilateral primary osteoarthritis of knee Confirmed Active Diagnosis Diagnosis Type Effective Dates Health Status Clinical Service Informant Bilateral primary osteoarthritis of knee Discharge Diagnosis 08/18/23 Vital Signs Most recent to oldest [Reference Range]: 1 Height 170 cm (08/18/23 11:04 AM) Patient Weight 78.4 kg (08/18/23 11:04 AM) Body Mass Index 27.13 kg/m2 (08/18/23 11:04 AM) Temperature [36.5-37.9 DegC] 36.2 DegC *LOW* (08/18/23 11:04 AM) Respiratory Rate 20 br/min (08/18/23 11:04 AM) Blood Pressure 146/78mmHg (08/18/23 11:04 AM) Cuff Pulse Pressure 68 mmHg (08/18/23 11:04 AM) Social History Social History Type Response Smoking Status Never smoked cigaret pattie Sex Male Pre-OP H & P * DEMETRIUS Camacho Cory D: PERFORM Event Display: Pre-OP H & P Authored Date: [id number] PRE-OPERATIVE HISTORY AND PHYSICAL Name: VERONICA ZHOU Patient Number: [id number] : 1950 Date of Service: 08/18/2023 PRE-OP Diagnosis: Left knee DJD Planned Procedure: Left knee total knee arthroplasty Chief Complaint: Left knee pain History of Present Illness (including history relevant to procedure): This 73-year-old male presents today for his preoperative history and physical. He is scheduled to undergo a left knee total kneearthroplasty on 09/10/2023. He has had increasing left knee pain over the last 3 years. He initiallydid well with viscosupplementation injections, but they are no longer working. He is unable to havecorticosteroid injections due to his diabetes. He has also tried OTC medications and activity modification without improvement. He elects to proceed with surgical intervention in hopes of improving his pain and function. He denies any catching or locking. No buckling. Pain is worse with weightbearing. It is affecting his ADLs. No numbness or tingling. Preoperative imaging has been obtained. Review Of Systems: A total of 10 systems are reviewed and are significant only for below stated conditions. Social history: Patient is . Retired. No tobacco use, rare EtOH use. Family history: Noncontributory. Past Medical History: Problems: Bilateral primary osteoarthritis of knee Insulin-dependent diabetes. Elevated cholesterol GERD Chronic low back pain History of kidney stones History of prostate cancer Procedure History Procedure Procedure Date Comments Right knee arthroscopy Left knee arthroscopy x3 Prostatectomy 2007 2000 Allergies and Sensitivities: Urocit-K(hives) ciprofloxacin(Unknown) Bee stings(severe) Current Home Meds: (Last Updated 08/18 11:03) EPINEPHrine (EpiPen 2-John) atorvastatin glipiZIDE (glipiZIDE 10 mg oral tablet, extended release) 10 mg PO Daily lisinopril (lisinopril 5 mg oral tablet) 5 mg PO Daily metFORMIN (metFORMIN 500 mg oral tablet) 1,000 mg PO bid repaglinide semaglutide (Ozempic) sodium bicarbonate (sodium bicarbonate 650 mg oral tablet) sodium hyaluronate (Euflexxa 10 mg/mL intra-articular solution) 25 mg intra- articular q7days sodium hyaluronate (Euflexxa 10 mg/mL intra-articular solution) 20 mg intra- articular q7days bilateral knees series of 3 Vitals: Last Updated 08/18/23 11:04 Weights: Last Updated 08/18/23 11:04 Date Temp Pulse BP RR SpO2 FIO2 Date Wt(kg) Wt(lb) 08/18 11:04 36.2 146/78 20 96 08/18 11:04 78.4 172 08/18 11:04 78.4 172 24 Hr Tmax: 36.2 at 08/18 11:04 Initial Wt: 08/18 78.4 kg 172 lb Physical Exam: (relevant to the procedure, including heart and lung evaluation) General: Well-developed, well-nourished, elderly male, in no acute distress. Sitting in his chair. Alert and oriented. HEENT: Normocephalic, atraumatic. Eyes PERRLA, EOMI. Nares patent bilaterally without turbinate enlargement. No drainage. Oropharynx without erythema or exudate. Uvula midline. Oral mucosa moist. Fair dentition. No bridges. Fillings are noted. Neck: No JVD. Cardiac: RRR, no MGR. Peripheral pulses are 2+. Lungs: Clear to auscultation bilaterally. No crackles, rhonchi, or wheezing. Good air movement. Abdomen: Bowel sounds present x4. Soft nontender. No organomegaly. No masses. Extremities: Left knee evaluation reveals a valgus stance. He lacks 5 to 10 degrees of terminal extension. Flexion to only around 95 degrees. Strength is 5/5 with good quad tone. Stable collateral ligaments. No palpable defect in the patellar tendon or quadriceps tendon. He has focal discomfort with palpation over the medial and lateral joint lines, with lateral being worse. Ambulating today withan antalgic gait. Neuro: Gross sensation is intact across the left leg by soft touch. Skin: Warm and dry with good turgor. No rashes. No ecchymosis or erythema. No intra-articular effusion. Studies of radiology results (relevant to the procedure): Radiographic imaging previously obtained was reviewed. The patient has end-stage DJD of both knees, worst on the left. He has a windswept presentation with valgus on the left and varus on the right. Periarticular osteophytes, subchondral sclerosis, and joint space narrowing are all present. ASSESSMENT: Left knee end-stage DJD Plan: Approximate 20 minutes was spent with the patient reviewing operative procedure, postoperative recovery, physical therapy requirements, and medication use. Postoperative prescriptions for Percocet and Coumadin will be provided at discharge from the hospital. Anticipate discharge to home with home health services. He states his daughter will be staying with him for a few days postoperatively. He has recently moved, and now is all on 1 floor with a long indoor hallway to get to his apartment. PDMP was checked and there are no concerning findings. He is aware of the COVID-19 risks associated with surgery. He is currently asymptomatic of any COVID-19 symptoms. He already has a walker. Postoperative follow-up appointment has been made with me on 09/25 for staple removal. He will attend PAT today for preoperative lab work, EKG, and chest x- ray. Medical clearance is scheduled for . This dictation has been completed using Calpian text voice recognition software. Grammatical errors, omissions, insertions, and misspellings may be present due to the limitations of the software. Electronic Signature on File Electronically Reviewed/Signed by: Mohan Camacho PA-C Author Signature Dt/Tm:08/18/2023 05:04 PM Division of Sports Medicine Electronically Reviewed/Signed by: Jarrell Gruber MD Cosigner Signature Dt/Tm: 08/19/2023 05:45 AM Lieutenant Fire Fighter for Clinical Affairs, [facility] [place] Professor in Orthopaedics International Trade Analyst, [facility] CDS Patient Care team information Care Team Personnel Name: MD Eduardo Nigelle S Position: Referring DIRECT Member Role: Primary Care Provider Address: Address: [address] [place], [place] [address] [id number] [place]
== END 2023-09-11 11:00 | disposition home health service (06) ==
LOC: ASU 05:00 → 3N 05:00

== ENCOUNTER 2024-09-15 05:09 | Observation (INO) ==
--- NOTE | 2024-09-07 09:28 | Anesthesiology Consultation ---
Date of Service September 07, 2024 Assessment & Plan (1) Encounter for pre-operative examination: Plan - check BSG am DOS. - semaglutide instructions: Patient informed by PAT RN to stop 7 days prior to surgery. - Outpatient joint assessment: Patient is currently scheduled for inpatient pathway. If re-evaluated and patient/surgeon requests outpatient pathway, patient is acceptable candidate for outpatient joint program from anesthesia standpoint pending surgeon's office assessment of pt motivation/support/completion of same day joint program preop requirements. - Per sr. consultant on 09/07/24: No known infectious disease contacts, current infectious disease symptoms in past 10 days or COVID positive test result in the past 30 days. Chart Review Chart Review: Acceptable Risk for Surgery and Patient NOT seen in Pre Admission Testing History Surgery Operation Date: 09/15/24 08:50 Proposed Procedures p Right Total Knee Arthroplasty - Jarrell Gruber MD Height/Weight Height: 5 ft 7 in Weight: 75.296 kg Allergies Allergy/AdvReac Type Severity Reaction Status Date / Time bee venom protein (honey bee) Allergy Severe Anaphylaxis Verified 09/07/24 08:30 ciprofloxacin Allergy Intermediate Hives Verified 09/07/24 08:30 pioglitazone [From Actos] Allergy Intermediate Rash Verified 09/07/24 08:30 potassium citrate Allergy Intermediate Hives, Verified 09/07/24 08:30 [From Urocit-K 5] blisters Medications Home Medications Medication Instructions Recorded Confirmed Last Taken atorvastatin 40 mg tablet 40 mg PO HS 08/14/23 09/07/24 01/21/24 21:30 cholecalciferol (vitamin D3) 125 125 mcg PO Q7D 08/14/23 09/07/24 01/19/24 mcg (5,000 unit) tablet (Vitamin D3) glipizide 10 mg tablet 20 mg PO QAM 08/14/23 09/07/24 01/21/24 10:00 lisinopril 5 mg tablet 5 mg PO QAM 08/14/23 09/07/24 01/21/24 10:00 metformin 500 mg tablet 1,000 mg PO QAM 08/14/23 09/07/24 01/21/24 21:30 semaglutide 1 mg/dose (2 mg/1.5 1 mg subcut Q7D 08/14/23 09/07/24 01/09/24 mL) subcutaneous pen injector (Ozempic) sodium bicarbonate 650 mg tablet 650 mg PO TID hyperuricemia 08/14/23 09/07/24 01/21/24 21:30 propranolol 10 mg tablet 10 mg PO TID 01/08/24 09/07/24 01/22/24 07:30 Past Medical History Medical History Bilateral primary osteoarthritis of knee (10/20/23) Diabetes mellitus, type 2 NIDDM Essential tremor Started on propranolol GERD (gastroesophageal reflux disease) occasional, stable per pt History of anemia not aware History of blood transfusion 1960s History of COVID-19 07/2022 (home test)- mild symptoms, resolved History of skin cancer removed right ear Hx of prostatic malignancy Dx 2021, s/p prostatectomy Hx of renal calculi Hypercholesteremia Hypertension controlled, stable per pt Hyperuricemia hx of uremic acid stones Right knee DJD (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/23) Past Surgical History Surgical History (Updated 09/07/24 @ 09:25 by Melvi Irizarry PA-C) H/O sinus surgery History of prostatectomy robotic procedure Hx of colonoscopy Hx of knee surgery Multiple knee scopes, Right TKR Nausea and vomiting after administration of anesthetic agent Remote hx years ago, no recent issues with recent sx States has received scop in past, states he did not have scop patch for prostatectomy and did well S/P cystoscopy with ureteral stent placement x2 w/laser lithotripsy of stones, most recent cysto/stent (12/25/23): MAC at [facility] Status post left knee replacement (12/04/23) Social History Smoking Status: Never smoker Do You Dip or Chew Tobacco: No Hx Alcohol Use: Yes Alcohol type: beer alcohol intake frequency: holidays/special occasions only Hx Substance Use: No substance use type: does not use Lab Results Anesthesia Preop Results Results Anesthesia Widget: WBC 7.11 K/ul (4.8-10.8) 08/23/24 Hgb 14.0 g/dl (14.0-18.0) 08/23/24 Hct 43.1 % (42.0-52.0) 08/23/24 Plt 187 K/uL (130-400) 08/23/24 Na 140 mmol/L (136-145) 08/23/24 K 4.2 mmol/L (3.5-5.1) 08/23/24 Cl 107 mmol/L (98-107) 08/23/24 CO2 27 mmol/L (21-32) 08/23/24 BUN 24 mg/dl (6-23) H 08/23/24 Creat 1.16 mg/dl (0.6-1.4) 08/23/24 Glucose Level 149 mg/dl (70-99(Fasting)) H 08/23/24 PT 10.3 Seconds (9.0-12.0) 08/23/24 PTT 26 Seconds (21-31) 08/23/24 INR 0.9 (0.9-1.1) 08/23/24 HA1c 6.3 % (4.5-5.6) H 08/23/24 Urine Color Yellow 08/23/24 Urine Appearance Clear (Clear) 08/23/24 Urine pH 5.0 (4.5-7.5) 08/23/24 Urine Specific [place] 1.023 (1.000-1.030) 08/23/24 Urine Protein Negative (Negative) 08/23/24 Urine Glucose (UA) Negative (Negative) 08/23/24 Urine Ketones Negative (Negative) 08/23/24 Urine Blood Negative (Negative) 08/23/24 Urine Nitrite Negative (Negative) 08/23/24 Urine Bilirubin Negative (Negative) 08/23/24 Urine Urobilinogen Negative (Negative) 08/23/24 Urine Leukocyte Esterase Negative (Negative) 08/23/24 Blood Type O Negative 08/23/24 Antibody Screen NEGATIVE 08/23/24 Testing Electrocardiogram Date: 08/23/24 NSR, rate 64 bpm Chest X-Ray Date: 08/23/24 No active disease in the chest. Other Testing Abdomen pelvis CT 12/25/23 1. 5 mm distal left ureteral calculus which results in moderate left hydrourete ronephrosis with perinephric and periureteral stranding and fluid. 2. Several punctate bilateral renal calculi.
[2024-09-15] MEDS: LR 500ML BOLUS, THEN 15ML/HR IV SCH (06:00)
[2024-09-15] MEDS: LR 60ML/HR IV SCH (06:10)
[2024-09-15] MEDS ORDERED: ROPIVACAINE 0.5% 5 MG/ML 30 ML VIAL ONE (06:25)
--- NOTE | 2024-09-15 06:33 | History & Physical Bridge Note ---
Date of Service September 15, 2024 History & Physical Bridge Note I have examined the patient, reviewed the History & Physical and in the interval since the performance of the History & Physical I have noted the following changes of clinical significance:consent and site verified. no changes noted
[2024-09-15] MEDS ORDERED: PROPOFOL IV EMULSION 10 MG/ML 20 ML VIAL IV ONE (06:37)
[2024-09-15] MEDS ORDERED: MIDAZOLAM HCL 1 MG/ML 2ML VIAL ONE (06:37)
[2024-09-15] MEDS ORDERED: LIDOCAINE 2% 2 ML VIAL/AMP(20MG/ML) INFIL ONE (06:37)
[2024-09-15] MEDS ORDERED: ONDANSETRON INJ 2 MG/ML 2 ML VIAL ONE (06:37)
[2024-09-15] MEDS ORDERED: fentaNYL citrate PF 100 MCG/2 ML VIAL ONE (06:38)
[2024-09-15] MEDS ORDERED: DEXAMETHASONE SOD INJ 4 MG/ML VIAL ONE (06:38)
[2024-09-15] MEDS ORDERED: ePHEDrine sulfate 50 MG/ML AMP IV PRN (06:41)
[2024-09-15] MEDS ORDERED: ONDANSETRON INJ 2 MG/ML 2 ML VIAL IV PRN ×2 (06:41→09:36)
[2024-09-15] MEDS ORDERED: ATROPINE SULFATE 0.1 MG/ML 10ML SYR IV PRN (06:41)
[2024-09-15] MEDS ORDERED: fentaNYL citrate PF 100 MCG/2 ML VIAL IV PRN (06:41)
[2024-09-15] MEDS ORDERED: HYDROmorphone INJ 1 MG/ML SYRINGE IV PRN (06:41)
[2024-09-15] MEDS: TRANEXAMIC ACID 1,000 MG **IV Pre-op IV SCH (06:46)
[2024-09-15] MEDS: ceFAZolin 2000MG 2,000 MG/15 ML SYR IV SCH ×2 (06:57→14:32)
[2024-09-15] MEDS: ORTHO JOINT ANESTHETIC ONE (07:26)
[2024-09-15] MEDS: TRANEXAMIC ACID 1,000 MG **IV Intra-op IV SCH (08:03)
[2024-09-15] MEDS: ROPIV 0.5% 246mg, Ketorolac 30mg, EPINEPHrine 0.5mg in NSS INFIL SCH (08:08)
--- NOTE | 2024-09-15 08:27 | Post Operative Brief Note ---
Immediate Post Op Note Date of Surgery September 15, 2024 Pre & Post Diagnosis Operation Date: 09/15/24 07:00 Osteoarthritis right knee with flexion varus deformity pre and postop diagnosis same I identified the patient and participated in the time-out.: Yes Procedure Operation Date: 09/15/24 07:00 <No data on this case meets the specified criteria> Right total knee replacement Surgeon Jarrell Gruber MD [employer]/ Estimated Blood Loss 25 Findings Consistent with Post-Op Diagnosis Osteoarthritis right knee with flexion varus deformity significant disease medial compartment patellofemoral compartment Fluids 1100 cc Complications None
--- NOTE | 2024-09-15 08:30 | Operative Report ---
Post Operative Report Pre & Post Diagnosis Operation Date: 09/15/24 07:00 <No data on this case meets the specified criteria> I identified the patient and participated in the time-out.: Yes Procedure Operation Date: 09/15/24 07:00 <No data on this case meets the specified criteria> Osteoarthritis right knee with flexion varus deformity Surgeon Jarrell Gruber MD Barrel Straight[employer]i/ Estimated Blood Loss 25 Findings Consistent with Post-Op Diagnosis Severe medial compartment disease and patellofemoral disease Fluids 1100 cc Specimens Bone Drains None Complications None Indications Severe pain failed conservative management x-rays with marked disease Description of Procedure After the patient was appropriate notified site verified consent verified ant ibiotics confirmed to be given the right lower extremity was prepped and draped use routine fashion. Tourniquet was inflated to 275 mmHg after exsanguination limb with a rubber bandage for total of 48 minutes. Midline exposure was utilized parapatellar arthrotomy was performed. Synovectomy was completed osteophytes resected. Distal femur was entered. Cruciates resected tibia subluxated menisci resected. Distal femur resected 12 mm proximal tibia 4 mm the extension gap was excellent. Tibia was sized to a 5 femur to a 4 appropriate cutting block applied to the distal femur anterior posterior, and chamfer cuts made. Flexion gap was checked it was excellent posterior capsule injected with Ortho mix. Box cut was then made a size 4 fit well. Tibia was then broached and reamed for a size 5 7 mm spacer was excellent. Full extension full flexion stable mid range flexion. The patella tracked well. Patella was resected leaving for 14 mm a 38 button was applied. Tracked well. All implants were removed wound was soaked in Betadine for 3 minutes then irrigated and then the permanent cemented into position tibia femur patella in that order at 12 minutes tourniquet deflated minor bleeding points close electrocautery. At 14 minutes the knee was flexed no cement removal was required. The spacer was removed wound was irrigated with Pulsavac Betadine permanent liner seated and then the knee injected with Ortho mix all around it. The bone wax was placed on the exposed bone cuts. There was minimal bleeding. EBL was estimated at 25 cc. The wound was then closed with #2 Vicryl 2-0 Vicryl and standstill clips appropriate dressing applied the patient transferred recovery in satisfactory descending tolerated procedure well. Summary of implants ATT UNE DePuy [employer]ynthes rotating platform knee size 4 femur size 5 tibia size 4 spacer matching the femur 7 mm thick posterior cruciate substituting size 38 patella open and 2 bags of [place] G cement. EBL 25 cc or less crystalloid per anesthesia 1100 cc. DVT prophylaxis per protocol. I attest to the content of the Intraoperative Record and any orders documented therein. Any exceptions are noted below.
--- NOTE | 2024-09-15 08:31 | Orthopedic Progress Note ---
Date of Service September 15, 2024 Orthopedic Progress Note Patient underwent total knee replacement right and no issues denies chest pain shortness of breath fever chills nausea vomiting headache. Vital signs are stable he is afebrile. Neurovascular check limited by spinal. X-ray pending. Continue with the care pathway. Start DVT PE prophylaxis tomorrow with Francesca. Family contacted.
--- NOTE | 2024-09-15 08:33 | Discharge Summary ---
Date of Service September 16, 2024 Admission HPI Per Admitting Provider Severe right knee pain failed conservative management Principal Diagnosis Osteoarthritis right knee with flexion varus deformity Discharge Data Allergies Allergy/AdvReac Type Severity Reaction Status Date / Time bee venom protein (honey bee) Allergy Severe Anaphylaxis Verified 09/15/24 05:42 ciprofloxacin Allergy Intermediate Hives Verified 09/15/24 05:42 pioglitazone [From Actos] Allergy Intermediate Rash Verified 09/15/24 05:42 potassium citrate Allergy Intermediate Hives, Verified 09/15/24 05:42 [From Urocit-K 5] blisters Vaccinations None Consultations None Procedures Performed Operation Date: 09/15/24 07:00 Actual Procedures p Right Total Knee Arthroplasty(Right) - Jarrell Gruber MD Ordered Studies 09/15/24 05:00 US - OR guided needle placemen Routine Hospital Course (1) Status post right knee replacement: Care pathway for total knee replacement. Plan Discharge tomorrow care plan for total knee replacement Total Time Total Time Spent Total Time Spent (In Minutes): 5 minutes Discharge Plan Discharge Items Patient Disposition: Home - Self-Care Reason For Visit: Right Knee Degenerative Joint Disease Discharge Diagnosis: Status post total knee replacement right for osteoarthritis right knee Activity: Per Instructions section Lifting: Wait until after follow-up appointment Bathing: Keep incision dry Sexual Activity: Wait until after follow-up appointment Exercise/Sports: Wait until after follow-up appointment Driving/Machine Use: No driving until cleared by Dr. Gruber Weightbearing: Full weightbearing Non-emergency contact: Surgeon Call non-emergency contact if: you have any medication questions, your pain is not controlled, your temperature is above 101, your wound has increased redness, your wound has increased drainage and your wound pain has increased Follow-up/Referrals: Lee Reed MD [Primary Care Provider] - Diet: Carb Consistent or DM2 Addtl Attending Provider Instructions: New Medicine: * You will likely be taking one or more of these medications: 1. Percocet - Take, as directed, when you need it, every four to six hours to control your pain. 2. Iron Sulfate - Take 1x each day for the month after surgery to help you replace the blood lost during surgery. 3. Eliquis - Thins your blood to lessen the chance of forming a blood clot. * The most common side effects of pain medicine and iron are nausea and constipation. If nausea or constipation is too much of a problem or if you have any questions about your new medicines or doses, call [facility] at . We will try to help you manage these issues. "VERY IMPORTANT TO READ AND REVIEW" Blood Clots and Blood Thinning Medicine: * You are given Eliquis during the immediate post-operative period to lessen the risk of blood clots forming in your legs and/or lungs. It is usually given for 4 weeks after surgery. Pain: * The immediate post-operative period after knee replacement surgery is often quite painful. * You are given a prescription for pain medicine. You should take it, as directed, when you need it, especially before physical therapy and before going to bed. Pain that interferes with sleep is very common and can last several months. * You will likely need pain medicine for the first four to six weeks. It will not stop all of the pain. The pain will lessen and as you feel better, you may change to milder pain medicine such as Tylenol. * The most common side effects of pain medicine are nausea and constipation, so don't take more than you need. Physical Therapy: * You will have physical therapy two or three times each week for four to six weeks after your surgery in order to regain your knee range of motion and to retrain your knee to work properly. * It is just as important to make sure you are getting your knee perfectly straight as it is to regain your knee bend. * Taking a pain pill an hour before therapy can help you have a more productive and comfortable therapy session if needed. Home Exercise: * You were shown a series of exercises (heel props, heel slides, etc.) in the hospital. Do these exercises three to four times each day including the exercises you were shown in physical therapy. Walking: * Get up and walk several times each day. For the first four weeks, try not to stand or walk for more than one hour at a time. If you do stand or walk for more than one hour, you will not hurt anything, but your knee and leg will likely swell. * As you feel comfortable, you may change from the walker or crutches to a cane and then to independent walking. SELF CARE INSTRUCTIONS AFTER TOTAL KNEE REPLACEMENT A. You may need to continue a physical therapy program after discharge from the hospital. There are several options available to you. Your doctor will assist you in selecting the best one for you. 1. An out-patient facility 2 to 3 times a week for therapy or home therapy. 2. Continue working on all exercises taught to you in the hospital. Your goals should be to increase bending of your knee to 90 degrees and beyond and to fully straighten your knee. B. You may progress at your own pace from walking with a walker or crutches to a cane; then to no assistive devices. C. Make walking a part of your daily routine. Be up as much as comfortable with rest periods throughout the day. Rest with leg elevation is very important. Use the ice wrap frequently for the first 3-4 weeks. D. There are no restrictions on activities. You may ride in a car, shop, participate in muskrat trapper and all social activities. E. Wear the long elastic stockings (YASMEEN hose) 20 hours a day for six weeks after surgery. They can be removed several times a day for laundering and for a shower. F. Do not place a pillow behind your knee when resting. A pillow at your ankle is okay. G. You may return to previous diet. VERY IMPORTANT TO READ AND REVIEW A. Take Eliquis (blood thinning medication) as directed by your doctor. B. There are a few signs you need to watch for after you are home. Call [facility] if you notice any of the followin. Increased severe knee pain. Some pain is expected especially when you exercise. 2. Increased swelling in your leg or knee; pain or swelling of the calf muscle in either lower leg. 3. Any fluid drainage from the incision. 4. Shortness of breath or chest pain. C. Please call [facility] at if you have any concerns or questions about your operation or recovery. The doctor or his nurse will return your call promptly. D. You must take antibiotics before dental work, bladder, bowel or other surgery. Call the office to obtain a prescription at least 2 days prior to your appointment. * CALL IF INCREASED PAIN, REDNESS, DRAINAGE OR FEVER GREATER THAT 101. * Sutures should be removed 12-14 days after surgery unless you are on chronic steroids, then it will be 14-18 days after surgery. Call your doctor if: * Temperature above 101 degrees F. * Pain not relieved by pain medicine ordered. * Increased drainage or redness from incision. * Notify your doctor with any questions or concerns. MEDICATIONS: * Please take your prescriptions as instructed at your pre-op appointment and/or see medication discharge instructions listed above. * If concerns develop, call your physician's office at . SPECIAL CARE INSTRUCTIONS: * Ice/Elevate as instructed. * Keep dressing clean, dry, intact. * Your surgical extremity may be discolored due to prepping agents used on the skin. A bluish-green tint is a normal variant and should not cause alarm. Call your doctor at [phone] if: * Temperature above 101 degrees * Pain not relieved by pain medicine ordered * There is increased drainage or redness from any incision * You have any unanswered questions, problems or concerns. FOLLOW UP VISIT: * If not already scheduled, please call the office at to schedule a follow-up appointment. start your Eliquis tonight with dinner. take it 2x day x 4 weeks to prevent blood clots use your walker for ambulation use the knee immobilzer today and tomorrow. It can be discontinued entirely on Friday morning ice and elevate the knee frequently to reduce pain/swelling follow up in PT on Friday as scheduled Pending Studies at Discharge: Yes Studies:: bone pathology Stand-Alone Forms: My [facility] Medications and DC Order Prescriptions: No Action atorvastatin 40 mg Tablet 40 mg PO HS metformin 500 mg Tablet 1,000 mg PO QAM glipizide 10 mg Tablet 20 mg PO QAM sodium bicarbonate 650 mg Tablet 650 mg PO TID lisinopril 5 mg Tablet 5 mg PO QAM cholecalciferol (vitamin D3) [Vitamin D3] 125 mcg (5,000 unit) Tablet 125 mcg PO Q7D Patient Comments: mondays w/supper Ozempic 1 mg/dose (2 mg/1.5 mL) Pen Injector 1 mg SUBCUT Q7D Patient Comments: propranolol 10 mg Tablet 10 mg PO TID Discharge Orders: Discharge Order (Routine); Ordered 09/16/24 Ordered By: Jarrell Gruber Admission Data Admit Date/Time: 09/15/24 08:49 Attending Provider: Jarrell Gruber Admit Provider: Jarrell Gruber Primary Care Provider: Lee Reed
--- NOTE | 2024-09-15 08:41 | Operative Report ---
Post Operative Report Pre & Post Diagnosis Operation Date: 09/15/24 07:00 Pre-Op Diagnosis: Right Knee Degenerative Joint Disease Post-Op Diagnosis: Right Knee Degenerative Joint Disease I identified the patient and participated in the time-out.: Yes Procedure Operation Date: 09/15/24 07:00 Actual Procedures p Right Total Knee Arthroplasty(Right) - Jarrell Gruber MD Surgeon Jarrell Grubre MD [employer] Operator Christi/agatha Estimated Blood Loss 25 Findings Consistent with Post-Op Diagnosis Specimens Bone pathology Description of Procedure The patient was brought to the operative suite where they underwent sedation per anesthesia. The right lower extremity was prepped and draped in the usual sterile fashion. A surgical timeout was performed. Patient underwent a right total knee arthroplasty, please see Dr. Gruber's operative report for full details. I was present assisted with patient positioning, limb posit ioning, soft tissue retraction, surgical approach, bony resections, hardware implantation, wound closure, postoperative dressing placement. The patient was awakened and taken to the recovery room in stable condition. I attest to the content of the Intraoperative Record and any orders documented therein. Any exceptions are noted below.
[2024-09-15] MEDS ORDERED: NALOXONE HCL 0.4 MG/1 ML VIAL/CARP IV PRN (09:36)
[2024-09-15] MEDS ORDERED: PHARMACY GLYCEMIC MGMT CONSULT PRN (09:36)
[2024-09-15] MEDS ORDERED: MAGNESIUM HYDROXIDE SUSP 30 ML UDC PO PRN (09:36)
[2024-09-15] MEDS ORDERED: TAMSULOSIN HCL 0.4 MG CAP PO PRN (09:36)
[2024-09-15] MEDS ORDERED: METOCLOPRAMIDE HCL INJ 5 MG/ML 2 ML VIAL IV PRN (09:36)
[2024-09-15] MEDS ORDERED: bisacodyL 10 MG SUPP PR PRN (09:36)
[2024-09-15] MEDS ORDERED: HYDROmorphone INJ 0.5 MG/0.5 ML SYR IV PRN (09:36)
[2024-09-15] MEDS ORDERED: diphenhydrAMINE Capsule 25 MG CAP PO PRN (09:36)
[2024-09-15] MEDS ORDERED: VANCOMYCIN CONSULT ACTIVE PRN (09:36)
--- NOTE | 2024-09-15 09:50 | Anesthesiology Progress Note ---
Date of Service September 15, 2024 Anesthesia Post Procedure Vital Signs Vital Signs: Temp Pulse Pulse Resp BP Pulse Ox O2 Del Method 09/15/24 09:30 36.5 C 64 16 129/77 96 Room Air 09/15/24 09:25 36.2 C L 63 12 120/74 95 Room Air 09/15/24 09:15 65 14 125/74 97 Room Air 09/15/24 09:05 68 15 121/74 98 Room Air 09/15/24 08:55 65 14 112/71 97 Room Air 09/15/24 08:45 65 17 119/76 100 Oxymask 09/15/24 08:38 36.6 C 67 11 L 108/69 100 Oxymask 09/15/24 05:40 36.5 C 73 20 140/94 100 Room Air O2 Flow Rate 09/15/24 09:30 09/15/24 09:25 09/15/24 09:15 09/15/24 09:05 09/15/24 08:55 09/15/24 08:45 6 09/15/24 08:38 6 09/15/24 05:40 Pain Intensity Right Knee: Pain Intensity: 0 Transfer of Care Handoff Completed per policy Notes Mental Status: alert / awake / arousable and participated in evaluation Patient Amnestic to Procedure: Yes Nausea / Vomiting: adequately controlled Pain: adequately controlled Airway Patency, RR, SpO2: stable & adequate BP & HR: stable & adequate Hydration State: stable & adequate Anesthetic Complications: no major complications apparent and Pt Satisfied with anesthetic care
--- NOTE | 2024-09-15 09:56 | XRay Report ---
XR knee RT 1 or 2V routine CLINICAL HISTORY: S/P R TKA COMPARISON: Right knee radiographs August 23, 2024. FINDINGS: Alignment of the total right knee arthroplasty is anatomic. No periprosthetic fracture or unexpected radiopaque foreign body. There are skin zohreh. IMPRESSION: Expected findings following total right knee arthroplasty. ACT 112: Negative or not required by law. Electronically signed by: Cheikh Figueroa M.D. 09/15/2024 9:55 AM
[2024-09-15] MEDS ORDERED: DEXTROSE 50% 50 ML SYRINGE IV PRN (10:15)
[2024-09-15] MEDS ORDERED: GLUCAGON FOR INJ 1 MG VIAL SQ PRN (10:15)
[2024-09-15] MEDS ORDERED: GLUCOSE 10 TAB/TUBE PO PRN (10:15)
[2024-09-15] MEDS ORDERED: GLUCOSE 40% GEL 15 GM TUBE PO PRN (10:15)
[2024-09-15] MEDS ORDERED: CARBOHYDRATES FOR HYPOGLYCEMIA PO PRN (10:15)
[2024-09-15] MEDS: INSULIN ASPART PER UNIT CHARGE SC SCH (10:41)
--- OUTSIDE RECORDS SUMMARY | 2024-09-15 10:43 | External Medical Summary | Continuity of Care Document ---
Author Name Unknown Organization [place] [id number] Address [address], [place] [id number] Care Team Providers Care Piano Builder Name Role Phone Lee Reed Primary Care Physician [phone] Encounter [facility] [id number] Date(s): 08/23/24 - 08/23/24 [place] [address] [place] [id number] [facility] [address] [place] [id number] Encounter Diagnosis Bilateral primary osteoarthritis of knee(Discharge Diagnosis) - 08/23/24 Status post left knee replacement(Discharge Diagnosis) - 08/23/24 Discharge Disposition: Home or Self Care Attending Physician: DEMETRIUS Camacho, Mohan Crocker Referring Physician: MD Yasmani, Jarrell Roman Allergies, Adverse Reactions, Alerts Substance Criticality Severity Reaction Reaction Severity Status ciprofloxacin Unknown Active Urocit-K hives Active Bee stings Unable to assess criticality Severe severe Active Medications amoxicillin 500 mg oral capsule Start: 03/18/24 6:18:00 PM EDT, 4 cap, PO, As indicated, Disp# 4 cap, Refills: 2, take all 4 capsulesone hour before dental procedures as directed, Pharmacy: [id number] Start Date: 03/18/24 Status: Ordered atorvastatin Start: 06/29/20 2:48:00 PM EDT Start Date: 06/29/20 Status: Ordered EpiPen 2-John Start: 11/22/19 10:51:00 AM EST Start Date: 11/22/19 Status: Ordered Euflexxa 10 mg/mL intra-articular solution Start: 09/30/22 10:35:00 AM EST, 20 mg =, intra-articular, q7days, Disp# 12 mL, Refills: 0, bilateral knees series of 3 Start Date: 09/30/22 Status: Ordered Euflexxa 10 mg/mL intra-articular solution Start: 11/19/23 5:05:00 PM EST, 20 mg =, intra-articular, q7days, Disp# 6 mL, Refills: 0, right kneeseries of 3, other Start Date: 11/19/23 Stop Date: 12/10/23 Status: Ordered glipiZIDE 10 mg oral tablet, extended release Start: 11/22/19 10:52:00 AM EST, 1 tab, PO, Daily Start Date: 11/22/19 Status: Ordered lisinopril 5 mg oral tablet Start: 11/22/19 10:52:00 AM EST, 1 tab, PO, Daily Start Date: 11/22/19 Status: Ordered metFORMIN 500 mg oral tablet Start: 11/22/19 10:51:00 AM EST, 2 tab, PO, bid Start Date: 11/22/19 Status: Ordered Ozempic Start: 08/18/23 11:03:00 AM EDT Start Date: 08/18/23 Status: Ordered repaglinide Start: 06/29/20 2:48:00 PM EDT Start Date: 06/29/20 Status: Ordered sodium bicarbonate 650 mg oral tablet Start: 11/22/19 10:51:00 AM EST Start Date: 11/22/19 Status: Ordered Mental Status 08/23/24 Barriers to Learning one year None evide nt Mandatory Health Literacy Documentation Yes Health Literacy Communication Barriers N ever Primary Language Icelandic Problem List Condition Confirmation Course Effective Dates Status H ealth Status Informant Status post left knee replacement Confirmed Active Bilateral primary osteoarthritis of knee Confirmed Active Diagnosis Diagnosis Type Effective Dates Health Status Clinical Service Informant Status post left knee replacement Discharge Diagnosis 08/23/24 Bilateral primary osteoarthritis of knee Discharge Diagnosis 08/23/24 Vital Signs Most recent to oldest [Reference Range]: 1 Height 171.9 cm (08/23/24 8:20 AM) Patient Weight 75.4 kg (08/23/24 8:20 AM) Body Mass Index 25.52 kg/m2 (08/23/24 8:20 AM) Heart Rate 66 bpm (08/23/24 8:20 AM) Blood Pressure 100/72mmHg (08/23/24 8:20 AM) Social History Social History Type Response Smoking Status Never smoked cigaret pattie Sex Male Sex Representation Male (finding) Pre-OP H & P * Sefchick, PA-C, Mohan D: PERFORM, MODIFY, MODIFY Event Display: Pre-OP H & P Authored Date: [id number] PRE-OPERATIVE HISTORY AND PHYSICAL Name: VERONICA ZHOU Patient Number: [id number] : 1950 Date of Service: 08/23/2024 PRE-OP Diagnosis: Right knee DJD Planned Procedure: Right total knee arthroplasty Chief Complaint: Right knee pain History of Present Illness (including history relevant to procedure): This 74-year-old male presents today for his preoperative history and physical. He is scheduled to undergo a right knee total knee arthroplasty on 09/15/[address] Gruber. The patient has had a longstanding history of right knee pain. Symptoms have been ongoing for years. He initially did well with conservative treatment including viscosupplementation, but it is no longer providing relief. He denies any numbness or tingling. His knee pain is affecting his ADLs. Worse with weightbearing and ambulation. He has a history of previous left total knee arthroplasty and has done well with it. He elects to proceed with the same on the left. Preoperative imaging has been obtained. Review Of Systems: A review of 10 systems was performed and is significant only for below stated conditions. Social history: Patient is . Retired. No tobacco use, rare EtOH use. Family history: Noncontributory Past Medical History: Problems: Status post left knee replacement Bilateral primary osteoarthritis of knee Insulin-dependent diabetes. Elevated cholesterol GERD Chronic low back pain History of kidney stones History of prostate cancer Procedure History Procedure Procedure Date Comments Left total knee arthroplasty Right knee arthroscopy Left knee arthroscopy x3 Prostatectomy September [id number] Allergies and Sensitivities: Urocit-K(hives) ciprofloxacin(Unknown) Bee stings(severe) Current Home Meds: (Last Updated 08/23 08:19) EPINEPHrine (EpiPen 2-John) amoxicillin (amoxicillin 500 mg oral capsule) 2,000 mg PO As indicated take all 4 capsules one hourbefore dental procedures as directed atorvastatin glipiZIDE (glipiZIDE 10 mg oral tablet, extended release) 10 mg PO Daily lisinopril (lisinopril 5 mg oral tablet) 5 mg PO Daily metFORMIN (metFORMIN 500 mg oral tablet) 1,000 mg PO bid repaglinide semaglutide (Ozempic) sodium bicarbonate (sodium bicarbonate 650 mg oral tablet) sodium hyaluronate (Euflexxa 10 mg/mL intra-articular solution) 20 mg intra- articular q7days right knee series of 3 sodium hyaluronate (Euflexxa 10 mg/mL intra-articular solution) 20 mg intra- articular q7days bilateral knees series of 3 Vitals: Last Updated 08/23/24 08:20 Weights: Last Updated 08/23/24 08:20 Date Temp Pulse BP RR SpO2 FIO2 Date Wt(kg) Wt(lb) 08/23 08:20 66 100/72 98 08/23 08:20 75.4 166 08/23 08:20 75.4 166 24 Hr Tmax: No Data Available Initial Wt: 08/23 75.4 kg 166 lb Physical Exam: (relevant to the procedure, including heart and lung evaluation) General: Well-developed, well-nourished, elderly male, in no acute distress. Sitting in a chair. Alert and oriented. HEENT: Normocephalic, atraumatic. Eyes PERRLA, EOMI. Nares patent bilaterally without nasal drainage. Oropharynx with moist oral mucosa. Good dentition. Neck: No JVD. Cardiac: RRR. No MGR. Peripheral pulses are 2+. Lungs: Clear to auscultation bilaterally. No crackles, rhonchi, or wheezing. Good air movement. Abdomen: Bowel sounds present x 4. Soft nontender. No organomegaly. No masses. Extremities: Right knee evaluation reveals no intra-articular effusion. He has a lack of 3 to 4 degrees of terminal extension. Flexion to greater than 110 degrees. Strength is 5/5 with good quad tone. Stable collateral ligaments. No discomfort or defect with palpation over the patellar tendon or quadriceps tendon. Limited patellar translation. Ambulating today with a slightly antalgic gait. Neuro: Gross sensation is intact across both lower extremities by soft touch. Skin: Warm and dry with good turgor. No rashes. No ecchymosis. No intra- articular effusion at this time. Studies of radiology results (relevant to the procedure): Radiographic imaging previously obtained of the right knee shows end-stage DJD. Periarticular osteophytes, subchondral sclerosis, and joint space narrowing are all present. ASSESSMENT: Right knee DJD Plan: Approximate 30 minutes was spent with the patient reviewing operative procedure, postoperative recovery, physical therapy requirements, and medication use. Postoperative prescriptions for Percocet and Eliquis will be sent to his pharmacy upon discharge from the hospital. Anticipate discharge to home with home health services.. He already has a walker and cane. He will obtain preoperative lab work, EKG, and chest x-ray today. He is scheduled to see his PCP next week for medical clearance. PDMP was checked and there are no concerning findings. He is currently asymptomatic of any COVID-19 or influenza symptoms. Postop follow-up appointment has been made with me for September 30. This dictation has been completed using [employer] text voice recognition software. Grammatical errors, omissions, insertions, and misspellings may be present due to the limitations of the software. Electronic Signature on File Electronically Reviewed/Signed by: Mohan Camacho PA-C Author Signature Dt/Tm:08/23/2024 04:10 PM Division of Sports Medicine Electronically Reviewed/Signed by: Jarrell Gruber MD Cosigner Signature Dt/Tm: 08/23/2024 05:04 PM Ip Counsel for Clinical Affairs, [facility] Professor in Orthopaedics Audiology Director, [facility] CDS Ortho Outpt Note * Julissa Finch: PERFORM Event Display: Ortho Outpt Note Authored Date: [id number] Name:VERONICA ZHOU Patient Number:[id number] :1950 Date of Service:08/23/2024 CHIEF COMPLAINT: Right TKA surgical consent, DOS: 09/15/2024 HPI: [id number] yearoldMalewho presents today forsurgical consent for right TKA. He feel he is ready to proceed with surgery at this time. He has no issues regarding his left knee done 09/10/2023. In regard to his right knee he complains of severe medial sided knee pain worse with golf. He is scheduled for surgery on 09/15/2024. PHYSICAL EXAM: Focus on the right lower extremity: Femoral and sciatic nerve function intact. Bilateral knee ROM: -2 - 110 Varus thrust on the right DIAGNOSTIC REVIEW: I obtained and personally interpreted 4 views of the right knee taken today and stored in [facility]. There is a a well-fixed, well-aligned total knee replacement on the left. Advanced medial joint space narrowing and varus alignment. moderate patellofemoral arthritis on the right. IMPRESSION: 1) Right knee medial compartment arthritis, varus malalignment 2) s/p left TKA PLAN: Risks, benefits, and rehabilitation were discussed. Surgical consent obtained for right TKA Follow-up as scheduled for surgery and post-operative appointments. ATTESTATION: IJulissa, scribing for and in the presence of, Jarrell Gruber, on this date,08/23/2024 09:10:25. Electronic Signature on File Electronically Reviewed/Signed by: Julissa Finch Author Signature Dt/Tm:08/23/2024 09:22 AM Electronically Reviewed/Signed by: Jarrell Gruber MD Cosigner Signature Dt/Tm: 08/23/2024 11:01 AM Ip Counsel for Clinical Affairs, [facility] [place] Professor in Orthopaedics Audiology Director, [facility] Sports Medicine Patient Care team information Care Team Personnel Name: DO Reed Joseph T Position: Referring Member Role: Primary Care Provider Address: [address], [place] [address] [place]
[2024-09-15] MEDS: MULTIVITAMIN TAB PO SCH (10:47)
[2024-09-15] MEDS: APIXABAN 2.5 MG TAB PO SCH (10:48)
[2024-09-15] MEDS: SODIUM BICARBONATE 650 MG TAB PO SCH (10:48)
[2024-09-15] MEDS: PROPRANOLOL HCL 10 MG TAB PO SCH (10:48)
[2024-09-15] MEDS: DOCUSATE SODIUM 100 MG CAP PO SCH (10:50)
[2024-09-15] MEDS: VANCOMYCIN HCL 1,250 MG in DEXTROSE 5% 250 ML IV ONE (11:15)
--- NOTE | 2024-09-15 13:36 | Orthopedic Progress Note ---
Date of Service September 15, 2024 Assessment & Plan Admission and Anticipated Discharge Date Admission Date: September 15, 2024 Orthopedic Progress Note Patient seen on the floor postop is doing well denies chest pain shortness of breath fever chills nausea vomiting or headache. Vital signs are stable he is afebrile. Neurovascular check still limited by spinal. Both lower extremities still without any significant motor or sensory function. The wound dressing clean dry and intact. Postop x-rays look excellent. Continue care pathway. Initiate anticoagulation tomorrow.
[2024-09-15] MEDS: ACETAMINOPHEN 500 MG TAB PO SCH (14:29)
--- NOTE | 2024-09-15 14:45 | Pharmacy Report ---
Pharmacy Glycemic Short Note 2 - Date of Service September 15, 2024 - Glycemic Short BSG Results (Last 24 hours): 09/15/24 09/15/24 09/15/24 05:36 08:41 10:28 POC Glucose 128 H 150 H 149 H 09/15/24 11:35 POC Glucose 150 H OUTPATIENT ANTIDIABETIC REGIMEN: * Metformin 1gm PO qAM * Ozempic 1mg SQ weekly (on ) * HbA1c: 6.3% (08/23/24) ASSESSMENT: * Mr Reynolds is a 74yo diabetic M, POD 0 s/p R TKA with Dr Gruber this morning. * It appears as though patient received 4mg IV dexamethasone pre-operatively, which is likely to lead to steroid-induced hyperglycemia. * Pt was initiated on Novolog for prandial/correctional coverage during hospital stay. * Pharmacy will continue to follow and adjust insulin regimen as indicated. PLAN FOR INPATIENT GLYCEMIC CONTROL: * Hold outpatient oral diabetes medications * Basal insulin * none at this time * Bolus insulin * NovoLog per scale ACHS or Q6hrs while NPO * Goal Range: Low 110 mg/dL - High 140 mg/dL * Correction Factor: 30 mg/dL/unit * Nutritional / Prandial insulin per carb ratio of 1 unit per 8 grams CHO consumed
[2024-09-15] MEDS: ATORVASTATIN 40 MG TAB PO SCH (21:07)
[2024-09-15] MEDS: SENNA 8.6 MG TAB PO SCH (21:08)
[2024-09-15] MEDS: oxyCODONE HCL IR 5 MG TAB (IMMEDIATE RELEASE) PO PRN (21:09)
[2024-09-16 06:42] LABS: Hematocrit (blood only) 31.8 % (42.0-52.0); Hemoglobin 10.9 g/dl (14.0-18.0); Mean Corpuscular Hemoglobin 30.1 pg (25.0-34.0); Mean Corpuscular Hgb Conc 34.3 g/dL (32.0-36.0); Mean Corpuscular Volume 87.8 fL (80.0-100.0); Mean Platelet Volume 9.8 fL (9.4-12.4); Platelet Count 139 K/uL (130-400); RDW Coefficient of Variation 13.2 % (11.5-14.5); RDW Standard Deviation 42.5 fL (36.4-46.3); Red Blood Count 3.62 M/uL (4.70-6.10); White Blood Count 6.51 K/ul (4.8-10.8)
[2024-09-16 06:57] LABS: BUN Creatinine Ratio 24.8 (10-20); Calcium 8.7 mg/dl (8.6-10.3); Creatinine Clr Calc Pharmacy 53.4 ml/min; Potassium 4.3 mmol/L (3.5-5.1)
--- NOTE | 2024-09-16 07:24 | Orthopedic Progress Note ---
Date of Service September 16, 2024 Assessment & Plan Admission and Anticipated Discharge Date Admission Date: September 15, 2024 Orthopedic Progress Note Postop day #1 status post right total knee replacement. Patient doing well denies any chest pain shortness of breath fever chills nausea vomiting headache. Vital signs are stable he is afebrile. Neurovascular check femoral sciatic nerve is normal. Calves are nontender. Wound clean and dry. AM hematocrit stable in the mid 30s. Assessment doing well plan is discharged home today after PT OT. Begin anticoagulation this morning for PE DVT prophylaxis. Follow-up on Friday for outpatient PT.
[2024-09-16 07:40] VITALS: BP 119/69; PULSE 79; RESP 16; TEMP 98.8; O2SAT 99
[2024-09-16] MEDS: lisinopril 5 MG TAB PO SCH (08:07)
[2024-09-16] MEDS: APIXABAN 2.5 MG TAB PO SCH (08:07)
== END 2024-09-16 11:05 | disposition home or self-care (01) ==
LOC: 3E 05:09 → ASU 05:09

== ENCOUNTER 2024-09-16 18:19 | Observation (INO) ==
--- NOTE | 2024-09-16 18:48 | Emergency Department Note ---
Impression & Plan Syncope and collapse, Acute dehydration ED Provider Note Name: VERONICA ZHOU Age: 74 Sex: Male Arrives Via: Ambulance Informant: Patient, daughter ED Provider: Brando Rdz MD Chief Complaint: Passing out Impression: As per impressions above Medical Decision Makin-year-old gentleman arrives for allowing a syncopal episode at home. Patient had right knee replacement yesterday discharged this morning doing well. Syncopal episode while exiting the bathroom and lowered to the ground by daughter. No head strike or head pain. Patient has taken 1 dose of Eliquis but has not had a significant injury thus CT imaging of the head can be held at this time. Patient has no neurodeficits I do not find any evidence of stroke at this time. He is not short of breath, tachycardic, having chest pain or hypoxic I do not feel this is consistent with PE. I am a bit concerned given him moderately elevated temperature though not truly febrile. Blood cultures were obtained though without clear evidence of infection we will hold off on antibiotics. He is not septic nor does he have evidence of septic shock. Laboratory workup is relatively reassuring as is chest x-ray. Patient has been stable throughout the ER over 2 hours. He was given some IV fluids for presumed dehydration. Triage/Nursing Notes reviewed by Me External Chart Review by me: I reviewed the discharge summary from this morning 09/16/2024. No concerns for infection or other findings at that time. Differential:Vasovagal event, dehydration, infection, hypoglycemia, electrolyte abnormalities, cardiac sources, intracerebral event, pulmonary embolism, seizure, toxicologic, neurologic, as well as other pathologies. Vital Signs: reviewed and remarkable for moderately elevated temperature Interventions: Normal saline bolus IV Labs:ED labs Reviewed by me and remarkable for no significant abnormalities Imagin view chest x-ray as per my interpretation no infiltrate nor effusion appreciated EKG:As per my interpretation. Indication syncope. Normal sinus rhythm at 87 bpm QTc of 425. There is no ectopy nor ischemia. Similar to August 23, 2024 and mild increased heart rate Cardiac/Tele Monitoring: Cardiac Monitoring: An Order was placed for continuous cardiac monitoring. The monitor shows a rate of 80 with a normal sinus rhythm. Consults:[facility] for further management. Plan: Disposition:Hospitalization. Condition: Good History of Present Illness: 74-year-old gentleman arrives for evaluation of syncope. Patient with right knee replacement yesterday at this facility. Notes he been having a fair amount of hiccups after that but no other significant symptoms. Using pain medications for his knee pain. States he got home and was doing well at home until this evening when he got up to go to the bathroom he noted he started getting very warm somewhat diaphoretic and lightheaded. He attempted to get out of the bathroom and called for help at which point he had a syncopal event. His daughter was with him and she caught him and slowly laid him to the ground. He did not fall nor strike his head. Patient came to about a minute later with nausea and vomiting. He was bit diaphoretic and has improved. Patient states he just feels very lightheaded and a bit nauseous currently. Denies any history of syncope. Does have a familial history of PEs in his father but that was felt secondary to cancer. Patient states his right quad muscle is quite sore following tourniquet use. He states he can feel his lower leg and move his toes without issue. Denies any current chest pain, shortness of breath, palpitations, back pain, abdominal pain, urinary/bowel symptoms or other concerning signs or symptoms. Patient was started on Eliquis this morning for which she took a single dose thus far. Past Medical History: Kidney stones, anemia, dyslipidemia Home Medications:See Below Allergies: Cipro, Actos, Urocit Vitals:Blood Pressure: 125/56, Pulse 88, RR 16, T 37.8C, O2 95% on RA Physical Exam: GENERAL: Patient is tired/dehydrated appearing and in minimal distress. RESPIRATORY: No dyspnea. Clear to auscultation and equal bilaterally. CARDIOVASCULAR: Regular rate and rhythm.No murmur appreciated. GASTROINTESTINAL: Abdomen soft, non-tender, no peritonitis. EXTREMITIES: Right leg in straight leg splint. Removing this reveals dressing intact. No bleeding through dressing appreciated. No significant swelling. Does have some tenderness palpation of the anterior right quad. Distal pulses sensation are intact. Otherwise normal motion all extremities, no cyanosis, no edema. NEUROLOGIC: Alert and oriented. No focal neurologic deficits appreciated SKIN: No rash, no jaundice, no diaphoresis. PSYCH: Appropriate GCS: 15 ED Course: Times/Reassessments: Patient is stable throughout he is comfortable plan for hospitalization due to syncopal episode. 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) Bilateral primary osteoarthritis of knee (10/20/23) GERD (gastroesophageal reflux disease) occasional, stable per pt History of blood transfusion 1960s Essential tremor Started on propranolol History of COVID-19 07/2022 (home test)- mild symptoms, resolved History of skin cancer removed right ear Hx of renal calculi Hx of prostatic malignancy Dx 2021, s/p prostatectomy Hyperuricemia hx of uremic acid stones Hypercholesteremia Hypertension controlled, stable per pt Diabetes mellitus, type 2 NIDDM Surgical History (Updated 09/15/24 @ 08:32 by Jarrell Gruber MD) Status post left knee replacement (12/04/23) H/O sinus surgery Nausea and vomiting after administration of anesthetic agent Remote hx years ago, no recent issues with recent sx States has received scop in past, states he did not have scop patch for prostatectomy and did well S/P cystoscopy with ureteral stent placement x2 w/laser lithotripsy of stones, most recent cysto/stent (12/25/23): [facility] at [facility] Hx of knee surgery Multiple knee scopes, Right TKR Hx of colonoscopy History of prostatectomy robotic procedure Social History Smoking Status: Never smoker Second Hand Exposure: No; Do You Dip or Chew Tobacco: No; Hx Alcohol Use: Yes Alcohol type: beer Hx Substance Use: No Preferred Language: Bengali Communication Ability: Effective [employer] Required: No Beliefs That Will Affect Care: None Current Living Situation: Alone Feels Safe at Home: Yes Assistive Devices: Walker Allergies Allergies Allergy/AdvReac Type Severity Reaction Status Date / Time bee venom protein (honey bee) Allergy Severe Anaphylaxis Verified 09/15/24 05:42 ciprofloxacin Allergy Intermediate Hives Verified 09/15/24 05:42 pioglitazone [From Actos] Allergy Intermediate Rash Verified 09/15/24 05:42 potassium citrate Allergy Intermediate Hives, Verified 09/15/24 05:42 [From Urocit-K 5] blisters Home Meds Home Medications Medication Instructions Recorded Confirmed atorvastatin 40 mg tablet 40 mg PO HS 08/14/23 09/16/24 cholecalciferol (vitamin D3) 125 125 mcg PO Q7D 08/14/23 09/16/24 mcg (5,000 unit) tablet (Vitamin D3) glipizide 10 mg tablet 20 mg PO QAM 08/14/23 09/16/24 lisinopril 5 mg tablet 5 mg PO QAM 08/14/23 09/16/24 metformin 500 mg tablet 1,000 mg PO QAM 08/14/23 09/16/24 semaglutide 1 mg/dose (2 mg/1.5 1 mg subcut Q7D 08/14/23 09/16/24 mL) subcutaneous pen injector (Ozempic) sodium bicarbonate 650 mg tablet 650 mg PO TID hyperuricemia 08/14/23 09/16/24 propranolol 10 mg tablet 10 mg PO TID 01/08/24 09/16/24 Previous Rx's Medication Instructions Recorded apixaban 2.5 mg tablet (Eliquis) 2.5 mg PO BID #60 tabs 09/16/24 docusate sodium 100 mg capsule 100 mg PO BID #30 caps 09/16/24 oxycodone-acetaminophen 5 mg-325 1 - 2 tab PO Q4H PRN pain #18 tabs 09/16/24 mg tablet (Percocet) prednisone 10 mg tablet 10 mg PO DAILY 7 days #7 tabs 09/16/24 Results & Data (ED) Vital Signs Vital Signs - 24 hr 09/16/24 18:25 09/16/24 18:35 09/16/24 18:39 Temperature 37.8 C H Temperature Source Oral Pulse Rate 88 88 88 Pulse Rate [Left Apical] Pulse Rate from SpO2 Sensor Respiratory Rate 16 18 Respiratory Effort / Characteristics Non-Labored Spontaneous Respiratory Depth Normal Respiratory Pattern Regular Blood Pressure 125/56 L Blood Pressure [Right Arm] Blood Pressure Mean 79 Blood Pressure Mean [Right Arm] Pulse Oximetry 95 97 Oxygen Delivery Method Room Air Room Air Sepsis Recent Fever Within 48 Hours Yes Sepsis New/Unexplained Change in Mental Status N/A Sepsis Action Taken by Nursing No Action Required 09/16/24 19:00 09/16/24 19:15 09/16/24 19:51 Temperature Temperature Source Pulse Rate 85 87 91 H Pulse Rate [Left Apical] Pulse Rate from SpO2 Sensor Respiratory Rate 16 16 16 Respiratory Effort / Characteristics Respiratory Depth Respiratory Pattern Blood Pressure 110/60 Blood Pressure [Right Arm] Blood Pressure Mean 76 Blood Pressure Mean [Right Arm] Pulse Oximetry 95 95 97 Oxygen Delivery Method Room Air Room Air Room Air Sepsis Recent Fever Within 48 Hours Sepsis New/Unexplained Change in Mental Status Sepsis Action Taken by Nursing 09/16/24 20:33 09/16/24 20:45 09/16/24 20:47 Temperature Temperature Source Pulse Rate 89 91 H Pulse Rate [Left Apical] 89 Pulse Rate from SpO2 Sensor Respiratory Rate 17 18 Respiratory Effort / Characteristics Non-Labored Spontaneous Respiratory Depth Normal Respiratory Pattern Regular Blood Pressure Blood Pressure [Right Arm] 139/69 Blood Pressure Mean Blood Pressure Mean [Right Arm] 92 Pulse Oximetry 97 97 99 Oxygen Delivery Method Room Air Room Air Room Air Sepsis Recent Fever Within 48 Hours Sepsis New/Unexplained Change in Mental Status Sepsis Action Taken by Nursing 09/16/24 21:00 09/16/24 21:12 09/16/24 21:30 Temperature Temperature Source Pulse Rate 94 H 89 Pulse Rate [Left Apical] Pulse Rate from SpO2 Sensor 93 H Respiratory Rate 22 Respiratory Effort / Characteristics Respiratory Depth Respiratory Pattern Blood Pressure 140/69 134/73 Blood Pressure [Right Arm] Blood Pressure Mean 92 93 Blood Pressure Mean [Right Arm] Pulse Oximetry 97 97 97 Oxygen Delivery Method Room Air Room Air Room Air Sepsis Recent Fever Within 48 Hours Sepsis New/Unexplained Change in Mental Status Sepsis Action Taken by Nursing 09/16/24 21:45 09/16/24 21:54 09/16/24 22:05 Temperature Temperature Source Pulse Rate 94 H 96 H Pulse Rate [Left Apical] Pulse Rate from SpO2 Sensor Respiratory Rate 21 Respiratory Effort / Characteristics Respiratory Depth Respiratory Pattern Blood Pressure Blood Pressure [Right Arm] 145/78 H Blood Pressure Mean Blood Pressure Mean [Right Arm] 100 Pulse Oximetry 97 97 Oxygen Delivery Method Room Air Room Air Sepsis Recent Fever Within 48 Hours Sepsis New/Unexplained Change in Mental Status Sepsis Action Taken by Nursing 09/16/24 22:15 09/16/24 22:27 09/16/24 22:42 Temperature Temperature Source Pulse Rate 95 H 94 H 93 H Pulse Rate [Left Apical] Pulse Rate from SpO2 Sensor 93 H Respiratory Rate 24 19 15 Respiratory Effort / Characteristics Respiratory Depth Respiratory Pattern Blood Pressure Blood Pressure [Right Arm] Blood Pressure Mean Blood Pressure Mean [Right Arm] Pulse Oximetry 97 97 Oxygen Delivery Method Room Air Room Air Sepsis Recent Fever Within 48 Hours Sepsis New/Unexplained Change in Mental Status Sepsis Action Taken by Nursing 09/16/24 23:15 09/16/24 23:21 Temperature Temperature Source Pulse Rate Pulse Rate [Left Apical] Pulse Rate from SpO2 Sensor 96 H 95 H Respiratory Rate Respiratory Effort / Characteristics Respiratory Depth Respiratory Pattern Blood Pressure Blood Pressure [Right Arm] Blood Pressure Mean Blood Pressure Mean [Right Arm] Pulse Oximetry 94 92 Oxygen Delivery Method Room Air Room Air Sepsis Recent Fever Within 48 Hours Sepsis New/Unexplained Change in Mental Status Sepsis Action Taken by Nursing Laboratory Data 09/16/24 18:28 09/16/24 18:28 Lab Results 09/16/24 09/16/24 09/16/24 Range/Units 18:28 19:20 19:41 WBC 11.09 H (4.8-10.8) K/ul RBC 3.68 L (4.70-6.10) M/uL Hgb 11.0 L (14.0-18.0) g/dl Hct 32.2 L (42.0-52.0) % MCV 87.5 (80.0-100.0) fL MCH 29.9 (25.0-34.0) pg MCHC 34.2 (32.0-36.0) g/dL RDW Std Deviation 42.3 (36.4-46.3) fL RDW Coeff of Jamin 13.2 (11.5-14.5) % Plt Count 184 (130-400) K/uL MPV 10.1 (9.4-12.4) fL Immature Gran % (Auto) 0.3 % Neut % (Auto) 79.2 % Lymph % (Auto) 6.2 % Gordon % (Auto) 10.6 % Eos % (Auto) 3.2 % Baso % (Auto) 0.5 % Neut # (Auto) 8.79 H (1.40-6.50) K/uL Lymph # (Auto) 0.69 L (1.20-3.40) K/uL Gordon # (Auto) 1.18 H (0.11-0.59) K/uL Eos # (Auto) 0.35 (0.00-0.50) K/uL Baso # (Auto) 0.05 (0.00-0.20) K/uL Immature Gran # (Auto) 0.03 (0.01-0.20) K/uL Sodium 137 (136-145) mmol/L Potassium 4.3 (3.5-5.1) mmol/L Chloride 105 (98-107) mmol/L Carbon Dioxide 25 (21-32) mmol/L Anion Gap 7 (3-11) BUN 23 (6-23) mg/dl Creatinine 1.02 (0.6-1.4) mg/dl Est Cr Clr Drug Dosing 61.2 ml/min eGFR 78.09 BUN/Creatinine Ratio 22.5 H (10-20) Glucose 205 H (70-99(Fasting)) mg/dl Lactate 1.5 (0.4-2.0) mmol/L Calcium 9.1 (8.6-10.3) mg/dl Magnesium 1.7 (1.7-2.4) mg/dl Total Bilirubin 1.1 H (0.2-1.0) mg/dl Direct Bilirubin 0.2 (0-0.2) mg/dl AST 17 (13-39) U/L ALT 13 (7-52) U/L Alkaline Phosphatase 77 (34-104) U/L Troponin I High Sens 6.1 (0-20) pg/ml Total Protein 6.8 (6.0-8.3) gm/dl Albumin 3.8 (3.4-5.0) gm/dl Procalcitonin 0.10 (0-0.5) ng/ml Urine Color Urine Appearance (Clear) Urine pH (4.5-7.5) Ur Specific [place] (1.000-1.030) Urine Protein (Negative) Urine Glucose (UA) (Negative) Urine Ketones (Negative) Urine Blood (Negative) Urine Nitrite (Negative) Urine Bilirubin (Negative) Urine Urobilinogen (Negative) Ur Leukocyte Esterase (Negative) SARS-CoV-2 (PCR) NEGATIVE (Negative) Influenza Type A (PCR) Negative (Neg) Influenza Type B (PCR) Negative (Neg) RSV (RT-PCR) Negative (Neg) 09/16/24 Range/Units 20:52 WBC (4.8-10.8) K/ul RBC (4.70-6.10) M/uL Hgb (14.0-18.0) g/dl Hct (42.0-52.0) % MCV (80.0-100.0) fL MCH (25.0-34.0) pg MCHC (32.0-36.0) g/dL RDW Std Deviation (36.4-46.3) fL RDW Coeff of Jamin (11.5-14.5) % Plt Count (130-400) K/uL MPV (9.4-12.4) fL Immature Gran % (Auto) % Neut % (Auto) % Lymph % (Auto) % Gordon % (Auto) % Eos % (Auto) % Baso % (Auto) % Neut # (Auto) (1.40-6.50) K/uL Lymph # (Auto) (1.20-3.40) K/uL Gordon # (Auto) (0.11-0.59) K/uL Eos # (Auto) (0.00-0.50) K/uL Baso # (Auto) (0.00-0.20) K/uL Immature Gran # (Auto) (0.01-0.20) K/uL Sodium (136-145) mmol/L Potassium (3.5-5.1) mmol/L Chloride (98-107) mmol/L Carbon Dioxide (21-32) mmol/L Anion Gap (3-11) BUN (6-23) mg/dl Creatinine (0.6-1.4) mg/dl Est Cr Clr Drug Dosing ml/min eGFR BUN/Creatinine Ratio (10-20) Glucose (70-99(Fasting)) mg/dl Lactate (0.4-2.0) mmol/L Calcium (8.6-10.3) mg/dl Magnesium (1.7-2.4) mg/dl Total Bilirubin (0.2-1.0) mg/dl Direct Bilirubin (0-0.2) mg/dl AST (13-39) U/L ALT (7-52) U/L Alkaline Phosphatase (34-104) U/L Troponin I High Sens (0-20) pg/ml Total Protein (6.0-8.3) gm/dl Albumin (3.4-5.0) gm/dl Procalcitonin (0-0.5) ng/ml Urine Color Yellow Urine Appearance Clear (Clear) Urine pH 5.0 (4.5-7.5) Ur Specific [place] 1.023 (1.000-1.030) Urine Protein Negative (Negative) Urine Glucose (UA) 2+ H (Negative) Urine Ketones 1+ H (Negative) Urine Blood Negative (Negative) Urine Nitrite Negative (Negative) Urine Bilirubin Negative (Negative) Urine Urobilinogen Negative (Negative) Ur Leukocyte Esterase Negative (Negative) SARS-CoV-2 (PCR) (Negative) Influenza Type A (PCR) (Neg) Influenza Type B (PCR) (Neg) RSV (RT-PCR) (Neg) Administered Medications Propranolol HCl (Propranolol Hcl 10 Mg Tab) 10 mg PO TID [facility] Stop: 10/16/24 22:34 Last Admin: 09/16/24 23:30 Dose: 10 mg Documented By: ARMANDO Senna/Docusate Sodium (Docusate Sodium/Senna 50/8.6mg Tab) 1 tab PO BID KODY Stop: 10/16/24 22:44 Last Admin: 09/16/24 23:29 Dose: 1 tab Documented By: ARMANDO Sodium Bicarbonate (Sodium Bicarbonate 650 Mg Tab) 650 mg PO TID KODY Stop: 10/16/24 22:39 Last Admin: 09/16/24 23:30 Dose: 650 mg Documented By: ARMANDO Discontinued Medications Acetaminophen (Acetaminophen 325 Mg Tab) 650 mg PO NOW STA Stop: 09/16/24 21:01 Last Admin: 09/16/24 22:01 Dose: Not Given Documented By: TIERRA Sodium Chloride (Nss) 1,000 mls @ 999 mls/hr IV .Q1H1M KODY Stop: 09/16/24 20:45 Last Infusion: 09/16/24 21:30 Dose: Infused Documented By: Admin: 09/16/24 20:24 Dose: 999 mls/hr Documented By: Infusion: 09/16/24 20:24 Dose: Infused Documented By: Admin: 09/16/24 19:29 Dose: 999 mls/hr Documented By: TIERRA Ioversol (Optiray 320 100ml) 91 ml IV ONCE ONE Stop: 09/16/24 23:03 Last Admin: 09/16/24 23:02 Dose: 91 ml Documented By: LEATHA Oxycodone/Acetaminophen (Oxycodone/Acetaminophen 5mg/325mg Tab) 1 tab PO NOW STA Stop: 09/16/24 21:12 Last Admin: 09/16/24 22:01 Dose: 1 tab Documented By: TIERRA Polyethylene Glycol (Polyethylene (Miralax) 17 Gm Pack) 17 gm PO NOW STA Stop: 09/16/24 22:42 Last Admin: 09/16/24 23:29 Dose: 17 gm Documented By: ARMANDO Imaging Data Radiologist's Impression: Chest X-Ray 09/16/24 18:43 Exam(s): XR CXR 1 VIEW EXAM: XR Chest, 1 View CLINICAL HISTORY: Reason for exam: Syncope. TECHNIQUE: Frontal view of the chest. COMPARISON: No relevant prior studies available. FINDINGS: Lungs: Unremarkable. No consolidation. Pleural space: Unremarkable. No pneumothorax. Heart: Unremarkable. No cardiomegaly. Mediastinum: Unremarkable. Normal mediastinal contour. Bones/joints: Unremarkable. No acute fracture. IMPRESSION: Normal chest x-ray. Electronically signed by: Stanislav Gray MD 09/16/24 19:59 PM Discharge Plan Visit Data Chief Complaint: Syncope Stated Complaint: SYNCOPE ED Provider: Brando Rdz Discharge Problem: Syncope and collapse, Acute dehydration Patient Disposition: Admitted As Inpatient Discharge Instructions Interventions: ED Discharge Assessment Last Done: 09/16/24 23:44 Forms Stand Alone Forms: My [facility] Prescriptions Prescriptions: No Action atorvastatin 40 mg Tablet 40 mg PO HS metformin 500 mg Tablet 1,000 mg PO QAM glipizide 10 mg Tablet 20 mg PO QAM sodium bicarbonate 650 mg Tablet 650 mg PO TID lisinopril 5 mg Tablet 5 mg PO QAM cholecalciferol (vitamin D3) [Vitamin D3] 125 mcg (5,000 unit) Tablet 125 mcg PO Q7D Patient Comments: mondays w/supper Ozempic 1 mg/dose (2 mg/1.5 mL) Pen Injector 1 mg SUBCUT Q7D Patient Comments: propranolol 10 mg Tablet 10 mg PO TID docusate sodium 100 mg Capsule 100 mg PO BID Qty: 30 0RF Eliquis 2.5 mg Tablet 2.5 mg PO BID Qty: 60 0RF oxycodone-acetaminophen [Percocet] 5-325 mg tablet 1 - 2 tab PO Q4H PRN (Reason: pain) Qty: 18 0RF Rx Instructions: INITIAL THERAPY prednisone 10 mg tablet 10 mg PO DAILY 7 Days Qty: 7 0RF Referrals Referrals: Lee Reed MD [Primary Care Provider] -
[2024-09-16 18:58] LABS: Basophils # (auto) 0.05 K/uL (0.00-0.20); Basophils % (auto) 0.5 %; Eosinophils # (auto) 0.35 K/uL (0.00-0.50); Eosinophils % (auto) 3.2 %; Hematocrit (blood only) 32.2 % (42.0-52.0); Immature Granulocytes # (auto) 0.03 K/uL (0.01-0.20); Immature Granulocytes % (auto) 0.3 %; Lymphocytes # (auto) 0.69 K/uL (1.20-3.40); Lymphocytes % (auto) 6.2 %; Mean Corpuscular Hemoglobin 29.9 pg (25.0-34.0); Mean Corpuscular Hgb Conc 34.2 g/dL (32.0-36.0); Mean Corpuscular Volume 87.5 fL (80.0-100.0); Mean Platelet Volume 10.1 fL (9.4-12.4); Monocytes # (auto) 1.18 K/uL (0.11-0.59); Monocytes % (auto) 10.6 %; Neutrophils # (auto) 8.79 K/uL (1.40-6.50); Neutrophils % (auto) 79.2 %; Platelet Count 184 K/uL (130-400); RDW Coefficient of Variation 13.2 % (11.5-14.5); RDW Standard Deviation 42.3 fL (36.4-46.3); Red Blood Count 3.68 M/uL (4.70-6.10); White Blood Count 11.09 K/ul (4.8-10.8)
[2024-09-16 19:14] LABS: Albumin Level 3.8 gm/dl (3.4-5.0); BUN Creatinine Ratio 22.5 (10-20); Bilirubin Direct 0.2 mg/dl (0-0.2); Bilirubin,Total 1.1 mg/dl (0.2-1.0); Calcium 9.1 mg/dl (8.6-10.3); Creatinine Clr Calc Pharmacy 61.2 ml/min; Magnesium 1.7 mg/dl (1.7-2.4); Potassium 4.3 mmol/L (3.5-5.1); Total Protein 6.8 gm/dl (6.0-8.3)
[2024-09-16 19:20] LABS: Troponin I High Sensitivity 6.1 pg/ml (0-20)
[2024-09-16] MEDS: SODIUM CHLORIDE 0.9% 1,000 ML IV SCH (19:29)
--- NOTE | 2024-09-16 20:00 | XRay Report ---
Exam(s): XR CXR 1 VIEW EXAM: XR Chest, 1 View CLINICAL HISTORY: Reason for exam: Syncope. TECHNIQUE: Frontal view of the chest. COMPARISON: No relevant prior studies available. FINDINGS: Lungs: Unremarkable. No consolidation. Pleural space: Unremarkable. No pneumothorax. Heart: Unremarkable. No cardiomegaly. Mediastinum: Unremarkable. Normal mediastinal contour. Bones/joints: Unremarkable. No acute fracture. IMPRESSION: Normal chest x-ray. Electronically signed by: Stanislav Gray MD 09/16/24 19:59 PM
[2024-09-16 20:11] LABS: Influenza A virus by PCR Negative (Neg); Influenza B virus by PCR Negative (Neg); RSV by PCR Negative (Neg); SARS CoV2 RNA(COVID-19) Ceph NEGATIVE (Negative)
[2024-09-16 21:05] LABS: Appearance Urine Clear (Clear); Bilirubin Urine Negative (Negative); Blood Urine Negative (Negative); Color Urine Yellow; Glucose Urine UA 2+ (Negative); Ketones Urine 1+ (Negative); Leukocyte Esterase Urine Negative (Negative); Nitrite Urine Negative (Negative); Protein Urine Negative (Negative); Specific Gravity Urine 1.023 (1.000-1.030); Urobilinogen Urine Negative (Negative)
[2024-09-16] MEDS: ACETAMINOPHEN 325 MG TAB PO STA (22:01)
[2024-09-16] MEDS: oxyCODONE/ACETAMINOPHEN 5mg/325mg TAB PO STA (22:01)
--- NOTE | 2024-09-16 22:31 | History & Physical Report ---
Date of Service September 16, 2024 Assessment & Plan (1) Syncope and collapse: Plan: Recent right knee surgery Differentials include orthostasis from hypovolemia/postop blood loss given postop anemia rule out arrhythmia, obstructive cardiac pathology hypertension, BP currently stable hyperlipidemia, on statin Rx DM2 on oral medications, well-controlled as of recent hemoglobin A1c of 6.3 last month hx NAFLD prostate cancer status post surgery urolithiasis on preventative bicarb Rx essential tremors on propranolol past tobacco abuse OBS Medical telemetry Check orthostatic vitals, TTE Follow H&H, transfuse PRBC if hemoglobin less than 7 and or for symptomatic anemia Hold Eliquis for now given progressive anemia, resume once H&H stable Orthopedics consult Re: Postop eval (Patient known to Dr. Gruber.) Basal bolus insulin, ISS BG goal 1 10-1 40, carb count coverage DVT prophylaxis. SCDs while Eliquis on hold Full code Patient daughter requesting updates providers. Ms. Emily Randle contact #[phone]. Text document was generated using Dmailer recognition software. It may contain grammatical or spelling errors. Kindly contact undersigned for clarification of any documentation item in question. Addendum: Case discussed with on-call orthopedist, Dr. Tsang. He recommends checking postop incision. Postop incision examined at bedside noted to be well coaptated by surgical zohreh. No need for antibiotics for right knee emphysema/swelling which is expected postop as per discussion. Okay with holding Eliquis for now. Text document was generated using Dmailer recognition software. It may contain grammatical or spelling errors. Kindly contact undersigned for clarification of any documentation item in question. History of Present Illness Chief Complaint: Syncope Primary Care Provider: Lee Reed MD History obtained from patient, family, and records. Medical history significant for hypertension, hyperlipidemia, DM2 on oral medications, NAFLD, prostate cancer status post surgery, urolithiasis on pre ventative bicarb Rx, essential tremors, past tobacco abuse. Recent overnight confinement under Orthopedics service for elective right total knee replacement from September 15-2023. Patient discharged home yesterday. Dose initiated prior to discharge. Hemoglobin 10.9 from 14 preop. Patient discharged on prednisone course to start tomorrow morning to prevent an allergic rash as per patient account. Patient felt lightheaded on getting up at home after waking up this afternoon. [place] like he was going to pass out. Chills as per patient. Transient syncopal event witnessed by family. Patient fell on his daughter who made sure patient did not fall on postop right leg. Patient woke up with worsening pain on right knee. Denies headache, chest pain, cough, SOB. No witnessed seizures, tongue biting or incontinence. Patient brought to the ER for evaluation. Medical History as above Surgical History : Prostate surgery, knee surgeries Family History : Hypertension past tobacco abuse, Personal/Social history : Occasional EtOH intake, retired from heavy machinery work Allergies Allergy/AdvReac Type Severity Reaction Status Date / Time bee venom protein (honey bee) Allergy Severe Anaphylaxis Verified 09/15/24 05:42 ciprofloxacin Allergy Intermediate Hives Verified 09/15/24 05:42 pioglitazone [From Actos] Allergy Intermediate Rash Verified 09/15/24 05:42 potassium citrate Allergy Intermediate Hives, Verified 09/15/24 05:42 [From Urocit-K 5] blisters Home Medications Medication Instructions Recorded Confirmed Type atorvastatin 40 mg tablet 40 mg PO HS 08/14/23 09/16/24 History cholecalciferol (vitamin D3) 125 125 mcg PO Q7D 08/14/23 09/16/24 History mcg (5,000 unit) tablet (Vitamin D3) glipizide 10 mg tablet 20 mg PO QAM 08/14/23 09/16/24 History lisinopril 5 mg tablet 5 mg PO QAM 08/14/23 09/16/24 History metformin 500 mg tablet 1,000 mg PO QAM 08/14/23 09/16/24 History semaglutide 1 mg/dose (2 mg/1.5 1 mg subcut Q7D 08/14/23 09/16/24 History mL) subcutaneous pen injector (Ozempic) sodium bicarbonate 650 mg tablet 650 mg PO TID hyperuricemia 08/14/23 09/16/24 History propranolol 10 mg tablet 10 mg PO TID 01/08/24 09/16/24 History apixaban 2.5 mg tablet (Eliquis) 2.5 mg PO BID #60 tabs 09/16/24 09/16/24 Rx docusate sodium 100 mg capsule 100 mg PO BID #30 caps 09/16/24 09/16/24 Rx oxycodone-acetaminophen 5 mg-325 1 - 2 tab PO Q4H PRN pain #18 tabs 09/16/24 09/16/24 Rx mg tablet (Percocet) prednisone 10 mg tablet 10 mg PO DAILY 7 days #7 tabs 09/16/24 09/16/24 Rx Past Med/Surg History Problem List (Updated 09/16/24 @ 23:54 by Brando Rdz MD) Acute dehydration (Acute) Syncope and collapse (Acute) Status post right knee replacement Nephrolithiasis Anemia Hydronephrosis of left kidney (Acute) Calculus of distal left ureter (Acute) Status post left knee replacement Encounter for pre-operative examination Medical History (Updated 09/16/24 @ 23:54 by Brando Rdz MD) History of anemia not aware Right knee DJD (12/19/23) Bilateral primary osteoarthritis of knee (10/20/23) GERD (gastroesophageal reflux disease) occasional, stable per pt History of blood transfusion 1960s Essential tremor Started on propranolol History of COVID-19 07/2022 (home test)- mild symptoms, resolved History of skin cancer removed right ear Hx of renal calculi Hx of prostatic malignancy Dx 2021, s/p prostatectomy Hyperuricemia hx of uremic acid stones Hypercholesteremia Hypertension controlled, stable per pt Diabetes mellitus, type 2 NIDDM Surgical History (Updated 09/15/24 @ 08:32 by Jarrell Gruber MD) Status post left knee replacement (12/04/23) H/O sinus surgery Nausea and vomiting after administration of anesthetic agent Remote hx years ago, no recent issues with recent sx States has received scop in past, states he did not have scop patch for prostatectomy and did well S/P cystoscopy with ureteral stent placement x2 w/laser lithotripsy of stones, most recent cysto/stent (12/25/23): MAC at [facility] Hx of knee surgery Multiple knee scopes, Right TKR Hx of colonoscopy History of prostatectomy robotic procedure Social History Smoking Status: Never smoker Second Hand Exposure: No; Do You Dip or Chew Tobacco: No; Hx Alcohol Use: Yes Alcohol type: beer Hx Substance Use: No Preferred Language: Mongolian Communication Ability: Effective Spot Welder Line Required: No Beliefs That Will Affect Care: None Current Living Situation: Alone Feels Safe at Home: Yes Safety Concerns: Feels Safe At This Time Assistive Devices: Glasses and Walker Review of Systems Review of Systems: As per HPI, all other systems reviewed and negative Physical Exam Physical Exam: GENERAL: Comfortable, slightly anxious, no respiratory distress SKIN: Pallor, warm HEENT: Bespectacled, pale palpebral conjunctivae, no ptosis, dry buccal mucosa NECK : Supple, no tenderness CHEST : CTA, no tenderness HEART : RRR, no obvious murmurs ABDOMEN: Some distention, nontender EXTREMITIES : RLE splint, no other conspicuous deformities noted NEUROLOGIC : Coherent, no facial asymmetry, rest tremors noted, no other gross f ocality Results & Data Results & Data Vital Signs (Past 12 Hours) Vital Signs Temp Pulse Pulse Resp BP BP Pulse Ox 09/16/24 22:27 94 H 19 09/16/24 22:15 95 H 24 97 09/16/24 22:05 145/78 H 09/16/24 21:54 96 H 21 97 09/16/24 21:45 94 H 97 09/16/24 21:30 89 134/73 97 09/16/24 21:12 94 H 22 97 09/16/24 21:00 140/69 97 09/16/24 20:47 89 18 139/69 99 09/16/24 20:45 91 H 17 97 09/16/24 20:33 89 97 09/16/24 19:51 91 H 16 97 09/16/24 19:15 87 16 95 09/16/24 19:00 85 16 110/60 95 09/16/24 18:39 88 18 97 09/16/24 18:35 88 09/16/24 18:25 37.8 C H 88 16 125/56 L 95 O2 Del Method 09/16/24 22:27 09/16/24 22:15 Room Air 09/16/24 22:05 09/16/24 21:54 Room Air 09/16/24 21:45 Room Air 09/16/24 21:30 Room Air 09/16/24 21:12 Room Air 09/16/24 21:00 Room Air 09/16/24 20:47 Room Air 09/16/24 20:45 Room Air 09/16/24 20:33 Room Air 09/16/24 19:51 Room Air 09/16/24 19:15 Room Air 09/16/24 19:00 Room Air 09/16/24 18:39 Room Air 09/16/24 18:35 09/16/24 18:25 Room Air Laboratory Results Laboratory Results WBC 11.09 K/ul (4.8-10.8) H 09/16/24 18:28 RBC 3.68 M/uL (4.70-6.10) L 09/16/24 18:28 Hgb 11.0 g/dl (14.0-18.0) L 09/16/24 18:28 Hct 32.2 % (42.0-52.0) L 09/16/24 18:28 MCV 87.5 fL (80.0-100.0) 09/16/24 18: MCH 29.9 pg (25.0-34.0) 09/16/24 18: MCHC 34.2 g/dL (32.0-36.0) 09/16/24 18: RDW Std Deviation 42.3 fL (36.4-46.3) 09/16/24 18:28 RDW Coeff of Jamin 13.2 % (11.5-14.5) 09/16/24 18: Plt Count 184 K/uL (130-400) 09/16/24 18: MPV 10.1 fL (9.4-12.4) 09/16/24 18:28 Immature Gran % (Auto) 0.3 % 09/16/24 18: Neut % (Auto) 79.2 % 09/16/24 18:28 Lymph % (Auto) 6.2 % 09/16/24 18:28 [place] % (Auto) 10.6 % 09/16/24 18:28 Eos % (Auto) 3.2 % 09/16/24 18:28 Baso % (Auto) 0.5 % 09/16/24 18:28 Neut # (Auto) 8.79 K/uL (1.40-6.50) H 09/16/24 18:28 Lymph # (Auto) 0.69 K/uL (1.20-3.40) L 09/16/24 18:28 [place] # (Auto) 1.18 K/uL (0.11-0.59) H 09/16/24 18:28 Eos # (Auto) 0.35 K/uL (0.00-0.50) 09/16/24 18:28 Baso # (Auto) 0.05 K/uL (0.00-0.20) 09/16/24 18:28 Immature Gran # (Auto) 0.03 K/uL (0.01-0.20) 09/16/24 18:28 Sodium 137 mmol/L (136-145) 09/16/24 18:28 Potassium 4.3 mmol/L (3.5-5.1) 09/16/24 18:28 Chloride 105 mmol/L (98-107) 09/16/24 18:28 Carbon Dioxide 25 mmol/L (21-32) 09/16/24 18:28 Anion Gap 7 (3-11) 09/16/24 18: BUN 23 mg/dl (6-23) 09/16/24 18: Creatinine 1.02 mg/dl (0.6-1.4) 09/16/24 18: Est Cr Clr Drug Dosing 61.2 ml/min 09/16/24 18:28 eGFR 78.09 09/16/24 18:28 BUN/Creatinine Ratio 22.5 (10-20) H 09/16/24 18:28 Glucose 205 mg/dl (70-99(Fasting)) H 09/16/24 18:28 Lactate 1.5 mmol/L (0.4-2.0) 09/16/24 19:41 Calcium 9.1 mg/dl (8.6-10.3) 09/16/24 18:28 Magnesium 1.7 mg/dl (1.7-2.4) 09/16/24 18:28 Total Bilirubin 1.1 mg/dl (0.2-1.0) H 09/16/24 18:28 Direct Bilirubin 0.2 mg/dl (0-0.2) 09/16/24 18:28 AST 17 U/L (13-39) 09/16/24 18:28 ALT 13 U/L (7-52) 09/16/24 18:28 Alkaline Phosphatase 77 U/L (34-104) 09/16/24 18:28 Troponin I High Sens 6.1 pg/ml (0-20) 09/16/24 18:28 Total Protein 6.8 gm/dl (6.0-8.3) 09/16/24 18:28 Albumin 3.8 gm/dl (3.4-5.0) 09/16/24 18:28 Procalcitonin 0.10 ng/ml (0-0.5) 09/16/24 18:28 Urine Color Yellow 09/16/24 20:52 Urine Appearance Clear (Clear) 09/16/24 20:52 Urine pH 5.0 (4.5-7.5) 09/16/24 20:52 Ur Specific [place] 1.023 (1.000-1.030) 09/16/24 20:52 Urine Protein Negative (Negative) 09/16/24 20:52 Urine Glucose (UA) 2+ (Negative) H 09/16/24 20:52 Urine Ketones 1+ (Negative) H 09/16/24 20:52 Urine Blood Negative (Negative) 09/16/24 20:52 Urine Nitrite Negative (Negative) 09/16/24 20:52 Urine Bilirubin Negative (Negative) 09/16/24 20:52 Urine Urobilinogen Negative (Negative) 09/16/24 20:52 Ur Leukocyte Esterase Negative (Negative) 09/16/24 20:52 SARS-CoV-2 (PCR) NEGATIVE (Negative) 09/16/24 19:20 Influenza Type A (PCR) Negative (Neg) 09/16/24 19:20 Influenza Type B (PCR) Negative (Neg) 09/16/24 19:20 RSV (RT-PCR) Negative (Neg) 09/16/24 19:20 Impressions Chest X-Ray 09/16/24 18:43 Exam(s): XR CXR 1 VIEW EXAM: XR Chest, 1 View CLINICAL HISTORY: Reason for exam: Syncope. TECHNIQUE: Frontal view of the chest. COMPARISON: No relevant prior studies available. FINDINGS: Lungs: Unremarkable. No consolidation. Pleural space: Unremarkable. No pneumothorax. Heart: Unremarkable. No cardiomegaly. Mediastinum: Unremarkable. Normal mediastinal contour. Bones/joints: Unremarkable. No acute fracture. IMPRESSION: Normal chest x-ray. Electronically signed by: Stanislav Gray MD 09/16/24 19:[address]: Limited exam. Status post total knee replacement. There is soft tissue edema and swelling. There is subcutaneous, intramuscular and intra-articular emphysema. Diagnostic Findings EKG as per my interpretation :Rate 85, NSR, LAD, LAFB, LVH, no ischemia
[2024-09-16] MEDS ORDERED: LORazepam 0.5 MG TAB PO PRN (22:36)
[2024-09-16] MEDS ORDERED: PROMETHAZINE 6.25 MG/50.25 ML BAG IV PRN (22:36)
[2024-09-16] MEDS ORDERED: POLYETHYLENE (MIRALAX) 17 GM PACK PO PRN (22:41)
[2024-09-16] MEDS: OPTIRAY 320 100ml IV ONE (23:02)
[2024-09-16] MEDS: POLYETHYLENE (MIRALAX) 17 GM PACK PO STA (23:29)
[2024-09-16] MEDS: DOCUSATE SODIUM/SENNA 50/8.6MG TAB PO SCH (23:29)
[2024-09-16] MEDS: PROPRANOLOL HCL 10 MG TAB PO SCH (23:30)
[2024-09-16] MEDS: SODIUM BICARBONATE 650 MG TAB PO SCH (23:30)
[2024-09-17 00:20] LABS: Hematocrit (blood only) 28.6 % (42.0-52.0); Hemoglobin 9.5 g/dl (14.0-18.0)
[2024-09-17] MEDS ORDERED: GLUCAGON FOR INJ 1 MG VIAL SQ PRN (00:23)
[2024-09-17] MEDS ORDERED: GLUCOSE 10 TAB/TUBE PO PRN (00:23)
[2024-09-17] MEDS ORDERED: DEXTROSE 50% 50 ML SYRINGE IV PRN (00:23)
[2024-09-17] MEDS ORDERED: CARBOHYDRATES FOR HYPOGLYCEMIA PO PRN (00:23)
[2024-09-17] MEDS ORDERED: GLUCOSE 40% GEL 15 GM TUBE PO PRN (00:23)
[2024-09-17] MEDS: INSULIN ASPART PER UNIT CHARGE SC SCH (01:22)
--- NOTE | 2024-09-17 02:13 | CT Scan Report ---
Exam(s): CT RIGHT KNEE With Contrast IV Amt: 91 ml opti 320 EXAM: CT Right Lower Extremity With Intravenous Contrast, Knee CLINICAL HISTORY: Reason for exam: pain, fever. TECHNIQUE: Axial computed tomography images of the right knee with intravenous contrast. CTDI is 24.91 mGy and DLP is 672.73 mGy-cm. Automated exposure control was utilized for the study. A dose lowering technique was utilized adhering to the principles of ALARA. CONTRAST: Patient received 91 ml opti 320 of IV contrast COMPARISON: X-rays dated 09/15/2024 FINDINGS: Metallic artifact degrades image quality limiting the exam. Bones/joints: The patient is status post total knee replacement.. No acute fracture. No dislocation. Soft tissues: There is soft tissue edema and swelling. There is subcutaneous, intramuscular and intra-articular emphysema. Surgical clips are seen. IMPRESSION: Limited exam. Status post total knee replacement. There is soft tissue edema and swelling. There is subcutaneous, intramuscular and intra-articular emphysema. Electronically signed by: Maxx Menendez MD 09/17/24 02:12 AM
[2024-09-17] MEDS: MoRPHine SULFATE 4 MG/ML 1 ML CARP\\VIAL IV PRN (03:39)
[2024-09-17] MEDS: LANTUS PER UNIT CHARGE SQ SCH (03:39)
[2024-09-17 03:41] VITALS: BP 128/71; RESP 20; TEMP 98.2; O2SAT 98
[2024-09-17 07:14] LABS: Basophils # (auto) 0.04 K/uL (0.00-0.20); Basophils % (auto) 0.5 %; Eosinophils % (auto) 3.8 %; Hematocrit (blood only) 28.9 % (42.0-52.0); Hemoglobin 9.7 g/dl (14.0-18.0); Immature Granulocytes # (auto) 0.04 K/uL (0.01-0.20); Immature Granulocytes % (auto) 0.5 %; Lymphocytes # (auto) 0.72 K/uL (1.20-3.40); Mean Corpuscular Hemoglobin 29.8 pg (25.0-34.0); Mean Corpuscular Hgb Conc 33.6 g/dL (32.0-36.0); Mean Corpuscular Volume 88.9 fL (80.0-100.0); Mean Platelet Volume 9.8 fL (9.4-12.4); Monocytes # (auto) 1.08 K/uL (0.11-0.59); Monocytes % (auto) 13.6 %; Neutrophils # (auto) 5.79 K/uL (1.40-6.50); Neutrophils % (auto) 72.6 %; Platelet Count 153 K/uL (130-400); RDW Coefficient of Variation 13.3 % (11.5-14.5); RDW Standard Deviation 43.7 fL (36.4-46.3); Red Blood Count 3.25 M/uL (4.70-6.10); White Blood Count 7.97 K/ul (4.8-10.8)
[2024-09-17 07:37] LABS: BUN Creatinine Ratio 17.2 (10-20); Calcium 8.5 mg/dl (8.6-10.3); Creatinine Clr Calc Pharmacy 67.1 ml/min; Potassium 3.9 mmol/L (3.5-5.1)
[2024-09-17 08:04] VITALS: PULSE 80
--- NOTE | 2024-09-17 08:37 | Orthopedic Consultation ---
Date of Consultation September 17, 2024 Assessment & Plan (1) Syncope and collapse: Status post post micturition syncopal vasovagal episode. At this point time he is returned to normal. As long as his cardiac status is cleared by medicine he can go home. He needs to have PT before he leaves. He needs to resume his Eliquis. 2.5 mg p.o. twice daily. Physical therapy should assess him prior to discharge to make sure he stable. Overall the patient states he feels fine. (2) Status post left knee replacement: Plan Continue care pathway for total knee replacement. Discharge once cleared by medicine. History of Present Illness Reason for Consultation: Vasovagal event post micturition status post total knee replacement done yesterday 09/16/2024. Requesting Physician: Renea Attending Physician: Chris Adan MD Allergies Allergy/AdvReac Type Severity Reaction Status Date / Time bee venom protein (honey bee) Allergy Severe Anaphylaxis Verified 09/15/24 05:42 ciprofloxacin Allergy Intermediate Hives Verified 09/15/24 05:42 pioglitazone [From Actos] Allergy Intermediate Rash Verified 09/15/24 05:42 potassium citrate Allergy Intermediate Hives, Verified 09/15/24 05:42 [From Urocit-K 5] blisters Home Medications Medication Instructions Recorded Confirmed Type atorvastatin 40 mg tablet 40 mg PO HS 08/14/23 09/16/24 History cholecalciferol (vitamin D3) 125 125 mcg PO Q7D 08/14/23 09/16/24 History mcg (5,000 unit) tablet (Vitamin D3) glipizide 10 mg tablet 20 mg PO QAM 08/14/23 09/16/24 History lisinopril 5 mg tablet 5 mg PO QAM 08/14/23 09/16/24 History metformin 500 mg tablet 1,000 mg PO QAM 08/14/23 09/16/24 History semaglutide 1 mg/dose (2 mg/1.5 1 mg subcut Q7D 08/14/23 09/16/24 History mL) subcutaneous pen injector (Ozempic) sodium bicarbonate 650 mg tablet 650 mg PO TID hyperuricemia 08/14/23 09/16/24 History propranolol 10 mg tablet 10 mg PO TID 01/08/24 09/16/24 History apixaban 2.5 mg tablet (Eliquis) 2.5 mg PO BID #60 tabs 09/16/24 09/16/24 Rx docusate sodium 100 mg capsule 100 mg PO BID #30 caps 09/16/24 09/16/24 Rx oxycodone-acetaminophen 5 mg-325 1 - 2 tab PO Q4H PRN pain #18 tabs 09/16/24 09/16/24 Rx mg tablet (Percocet) prednisone 10 mg tablet 10 mg PO DAILY 7 days #7 tabs 09/16/24 09/16/24 Rx Patient History Medical History (Updated 09/16/24 @ 23:54 by Brando Rdz MD) History of anemia not aware Right knee DJD (12/19/23) Bilateral primary osteoarthritis of knee (10/20/23) GERD (gastroesophageal reflux disease) occasional, stable per pt History of blood transfusion 1960s Essential tremor Started on propranolol History of COVID-19 07/2022 (home test)- mild symptoms, resolved History of skin cancer removed right ear Hx of renal calculi Hx of prostatic malignancy Dx 2021, s/p prostatectomy Hyperuricemia hx of uremic acid stones Hypercholesteremia Hypertension controlled, stable per pt Diabetes mellitus, type 2 NIDDM Surgical History (Updated 09/15/24 @ 08:32 by Jarrell Gruber MD) Status post left knee replacement (12/04/23) H/O sinus surgery Nausea and vomiting after administration of anesthetic agent Remote hx years ago, no recent issues with recent sx States has received scop in past, states he did not have scop patch for prostatectomy and did well S/P cystoscopy with ureteral stent placement x2 w/laser lithotripsy of stones, most recent cysto/stent (12/25/23): MAC at [facility] Hx of knee surgery Multiple knee scopes, Right TKR Hx of colonoscopy History of prostatectomy robotic procedure Social History Smoking Status: Never smoker Second Hand Exposure: No; Do You Dip or Chew Tobacco: No; Hx Alcohol Use: Yes Alcohol type: beer Hx Substance Use: No Preferred Language: Sami Communication Ability: Effective Color Tester Required: No Beliefs That Will Affect Care: None Current Living Situation: Alone Feels Safe at Home: Yes Safety Concerns: Feels Safe At This Time Assistive Devices: Glasses and Walker Review of Systems Musculoskeletal: Right lower extremity looks as expected postop. Wound clean and dry and intact. Neurovascular check femoral sciatic nerve is normal. Calves are nontender. Hematocrit in the appropriate range for postop knee replacement. No sign of fracture in the hip or any other body parts. Neurologic: Femoral sciatic nerve is intact both lower extremities. Upper extremity neurologic exam normal. Neurologic examination nonfocal. Psychiatric: Awake alert oriented x 3. Understands what happened. Physical Exam Neurologic: Femoral sciatic nerve bilateral lower extremities in all upper extremity neuro is within normal limits. Psychiatric: No issues awake alert oriented Results & Data Vital Signs (Past 12 Hours) Vital Signs Temp Pulse Pulse Pulse Resp BP BP 09/17/24 08:00 80 09/17/24 03:40 36.8 C 86 20 128/71 09/17/24 00:23 09/17/24 00:21 89 09/17/24 00:10 09/17/24 00:10 36.7 C 87 18 128/73 09/16/24 23:21 09/16/24 23:15 09/16/24 22:44 93 H 09/16/24 22:42 93 H 15 09/16/24 22:27 94 H 19 09/16/24 22:15 95 H 24 09/16/24 22:05 09/16/24 21:54 96 H 21 09/16/24 21:45 94 H 09/16/24 21:30 89 134/73 09/16/24 21:12 94 H 22 09/16/24 21:00 140/69 09/16/24 20:47 89 18 09/16/24 20:45 91 H 17 BP Pulse Ox Pulse Ox O2 Del Method O2 Del Method 09/17/24 08:00 09/17/24 03:40 98 Room Air 09/17/24 00:23 97 Room Air 09/17/24 00:21 09/17/24 00:10 Room Air 09/17/24 00:10 97 Room Air 09/16/24 23:21 92 Room Air 09/16/24 23:15 94 Room Air 09/16/24 22:44 09/16/24 22:42 97 Room Air 09/16/24 22:27 09/16/24 22:15 97 Room Air 09/16/24 22:05 145/78 H 09/16/24 21:54 97 Room Air 09/16/24 21:45 97 Room Air 09/16/24 21:30 97 Room Air 09/16/24 21:12 97 Room Air 09/16/24 21:00 97 Room Air 09/16/24 20:47 139/69 99 Room Air 09/16/24 20:45 97 Room Air Laboratory Results Laboratory work at appropriate level status post total knee replacement. Diagnostic Findings Studies within normal limits.
[2024-09-17] MEDS: ACETAMINOPHEN 500 MG TAB PO PRN (09:25)
[2024-09-17] MEDS: APIXABAN 2.5 MG TAB PO SCH (09:26)
[2024-09-17] MEDS: lisinopril 5 MG TAB PO SCH (09:26)
[2024-09-17] MEDS: predniSONE 10 MG TABLET PO SCH (09:26)
--- NOTE | 2024-09-17 10:05 | Hospitalist Progress Note ---
Date of Service September 17, 2024 Assessment & Plan (1) Syncope and collapse: Plan: Likely secondary to dehydration orthostatic hypotension Condition resolved in the hospital No arrhythmias noted and the blood pressure remains Ambulated well in the room and in the hallway without any symptoms He was evaluated by orthopedic surgeon for the recent right knee surgery and was advised that he could go home He did not want to stay in the hospital to get physical therapy rather he will go home and go to orthopedics office for the physical therapy as planned Recent right knee surgery Appreciate Ortho input and recommendation Eliquis has been restarted He will be discharged home this morning Anemia Acute blood loss anemia Hemoglobin was noted to be 14 on 08/23/2024 Following surgery went down to 10.9 and today on 09/17/2024 is 9.7 No evidence of any acute bleeding Expected to improve eventually Other significant medical conditions as mentioned below remained stable Hyperlipidemia, on statin Rx DM2 on oral medications, well-controlled as of recent hemoglobin A1c of 6.3 last month Basal bolus insulin, ISS BG goal 1 10-1 40, carb count coverage hx NAFLD Prostate cancer status post surgery Urolithiasis on preventative bicarb Rx Essential tremors on propranolol DVT prophylaxis. SCDs while Eliquis on hold Full code Patient daughter requesting updates providers. Ms. Emily Randle contact #[phone]. Patient did not want to stay any longer in the hospital to get the physical therapy He ambulated in the room and in the hallway without any difficulties He was discharged home and was advised to follow-up with PT as scheduled orthopedics office (2) Acute dehydration: (3) Status post right knee replacement: (4) Nephrolithiasis: (5) Hypertension: (6) Diabetes mellitus, type 2: (7) GERD (gastroesophageal reflux disease): Admission and Anticipated Discharge Date Admission Date: September 16, 2024 Subjective 09/17/2024 The patient was seen and examined in medical floor He has been feeling much better and denies any symptoms He was evaluated by the orthopedic surgeon and advised that he could go home Denies any more dizziness, presyncope or any other symptoms with ambulation Review of Systems Review of Systems: All systems reviewed and are unremarkable except as noted below Physical Exam Physical Exam: Lying in bed without any acute distress Constitutional: well developed and well nourished; not ill appearing Eyes: PERRL, conjunctivae normal, anicteric sclerae ENMT: external ear and nose normal, oropharynx normal Neck: trachea midline, no thyromegaly Respiratory: no respiratory distress Auscultation: lungs clear to auscultation bilaterally Cardiovascular: Rate/Rhythm: regular rate and regular rhythm; not tachycardic Heart Sounds: normal S1 and normal S2; no murmur Extremities: no edema Gastrointestinal (Abdomen): Inspection/Auscultation: normal bowel sounds; abdomen not distended Percussion/Palpation: abdomen soft; abdomen nontender Musculoskeletal: Right knee pain with movement status post right knee surgery on sixth of this month Neurologic: normal touch/pain/proprioception and moves all extremities; no focal motor deficits Psychiatric: A+Ox3, euthymic affect Lymphatic: no cervical or axillary lymphadenopathy Results & Data Results & Data Vital Signs (Past 12 Hours) Vital Signs Temp Pulse Pulse Resp BP BP Pulse Ox 09/17/24 09:00 09/17/24 08:00 80 09/17/24 03:40 36.8 C 86 20 128/71 98 09/17/24 00:23 09/17/24 00:21 89 09/17/24 00:10 09/17/24 00:10 36.7 C 87 18 128/73 97 09/16/24 23:21 92 09/16/24 23:15 94 09/16/24 22:44 93 H 09/16/24 22:42 93 H 15 97 09/16/24 22:27 94 H 19 09/16/24 22:15 95 H 24 97 09/16/24 22:05 145/78 H 09/16/24 21:54 96 H 21 97 Pulse Ox O2 Del Method O2 Del Method 09/17/24 09:00 Room Air 09/17/24 08:00 09/17/24 03:40 Room Air 09/17/24 00:23 97 Room Air 09/17/24 00:21 09/17/24 00:10 Room Air 09/17/24 00:10 Room Air 09/16/24 23:21 Room Air 09/16/24 23:15 Room Air 09/16/24 22:44 09/16/24 22:42 Room Air 09/16/24 22:27 09/16/24 22:15 Room Air 09/16/24 22:05 09/16/24 21:54 Room Air Laboratory Results Short CBC 09/16/24 09/16/24 09/17/24 Range/Units 18:28 23:59 06:44 WBC 11.09 H 7.97 (4.8-10.8) K/ul Hgb 11.0 L 9.5 L 9.7 L (14.0-18.0) g/dl Hct 32.2 L 28.6 L 28.9 L (42.0-52.0) % Plt Count 184 153 (130-400) K/uL BMP 09/16/24 09/17/24 18:28 06:44 Sodium 137 138 Potassium 4.3 3.9 Chloride 105 107 Carbon Dioxide 25 26 BUN 23 16 Creatinine 1.02 0.93 Glucose 205 H 154 H Calcium 9.1 8.5 L Cardiac Enzymes 09/16/24 Range/Units 18:28 Total Creatine Kinase 179 (30-223) U/L Liver Function 09/16/24 Range/Units 18:28 Total Bilirubin 1.1 H (0.2-1.0) mg/dl Direct Bilirubin 0.2 (0-0.2) mg/dl AST 17 (13-39) U/L ALT 13 (7-52) U/L Alkaline Phosphatase 77 (34-104) U/L Albumin 3.8 (3.4-5.0) gm/dl Urine 09/16/24 Range/Units 20:52 Urine Color Yellow Urine Appearance Clear (Clear) Urine pH 5.0 (4.5-7.5) Ur Specific [place] 1.023 (1.000-1.030) Urine Protein Negative (Negative) Urine Glucose (UA) 2+ H (Negative) Medications Administered Current Inpatient Medications Acetaminophen (Acetaminophen 500 Mg Tab) 1,000 mg PO Q8H PRN PRN Reason: Mod-Sev Pain (Scale 4-10) Stop: 10/17/24 08:37 Last Admin: 09/17/24 09:25 Dose: 1,000 mg Apixaban (Apixaban 2.5 Mg Tab) 2.5 mg PO BID KODY Stop: 10/17/24 08:59 Last Admin: 09/17/24 09:26 Dose: 2.5 mg Atorvastatin Calcium (Atorvastatin 40 Mg Tab) 40 mg PO HS KODY Stop: 10/17/24 20:59 Dextrose (Dextrose 50% 50 Ml Syringe) 25 - 50 ml IV UD PRN; Protocol PRN Reason: Hypoglycemia Protocol Stop: 10/17/24 00:22 Glucagon (Glucagon For Inj 1 Mg Vial) 1 mg SQ UD PRN; Protocol PRN Reason: Hypoglycemia Protocol Stop: 10/17/24 00:22 Glucose (Glucose 40% Gel 15 Gm Tube) 15 - 30 gm PO UD PRN; Protocol PRN Reason: Hypoglycemia Protocol Stop: 10/17/24 00:22 Glucose (Glucose 10 Tab/Tube) 4 - 8 tab PO UD PRN; Protocol PRN Reason: Hypoglycemia Protocol Stop: 10/17/24 00:22 Promethazine HCl (Phenergan) 6.25 mg in 50.25 mls @ 201 mls/hr IV Q6H PRN PRN Reason: Nausea And Vomiting Stop: 10/16/24 22:35 Insulin Aspart (Insulin Aspart Per Unit Charge) 0 units SC ACHS KODY Stop: 10/17/24 00:22 Last Admin: 09/17/24 09:24 Dose: 8 units Insulin Glargine (Lantus Per Unit Charge) 5 units SQ DAILY KODY Stop: 10/17/24 03:19 Last Admin: 09/17/24 03:39 Dose: 5 units Lisinopril (Lisinopril 5 Mg Tab) 5 mg PO QAM KODY Stop: 10/17/24 08:59 Last Admin: 09/17/24 09:26 Dose: 5 mg Lorazepam (Lorazepam 0.5 Mg Tab) 0.25 mg PO TID PRN PRN Reason: Anxiety Stop: 10/16/24 22:35 Miscellaneous (Carbohydrates For Hypoglycemia ) 15 - 30 gm PO UD PRN PRN Reason: Hypoglycemia Protocol Stop: 10/17/24 00:22 Morphine Sulfate (Morphine Sulfate 4 Mg/Ml 1 Ml Carp\Vial) 4 mg IV Q4H PRN PRN Reason: Pain Stop: 09/30/24 22:35 Last Admin: 09/17/24 03:39 Dose: 4 mg Polyethylene Glycol (Polyethylene (Miralax) 17 Gm Pack) 17 gm PO DAILY PRN PRN Reason: Constipation Stop: 10/16/24 22:40 Prednisone (Prednisone 10 Mg Tablet) 10 mg PO DAILY KODY Stop: 10/17/24 08:59 Last Admin: 09/17/24 09:26 Dose: 10 mg Propranolol HCl (Propranolol Hcl 10 Mg Tab) 10 mg PO TID KODY Stop: 10/16/24 22:34 Last Admin: 09/17/24 09:26 Dose: 10 mg Senna/Docusate Sodium (Docusate Sodium/Senna 50/8.6mg Tab) 1 tab PO BID [facility] Stop: 10/16/24 22:44 Last Admin: 09/17/24 09:30 Dose: 1 tab Sodium Bicarbonate (Sodium Bicarbonate 650 Mg Tab) 650 mg PO TID [facility] Stop: 10/16/24 22:39 Last Admin: 09/17/24 09:25 Dose: 650 mg
--- NOTE | 2024-09-17 13:30 | Electrocardiogram Report ---
Test Reason : Blood Pressure : */* mmHG Vent. Rate : 87 BPM Atrial Rate : 87 BPM P-R Int : 194 ms QRS Dur : 80 ms QT Int : 354 ms P-R-T Axes : 34 -28 40 degrees QTcB Int : 425 ms Normal sinus rhythm Minimal voltage criteria for LVH, may be normal variant ( R in aVL ) Poor R wave progression, consider anterior TX vs. lead placement vs. LVH Abnormal ECG When compared with ECG of 23-Aug-2024 09:42, No significant change was found Confirmed by Gordon Mcnulty ([id number]) on 09/17/2024 1:29:44 PM Referred By: REFERRED SELF Confirmed By: Gordon Mcnulty
[2024-09-17] MEDS ORDERED: ATORVASTATIN 40 MG TAB PO SCH (21:00)
--- NOTE | 2024-09-18 07:29 | Discharge Summary ---
Date of Service September 18, 2024 Admission HPI Per Admitting Provider History obtained from patient, family, and records. Medical history significant for hypertension, hyperlipidemia, DM2 on oral medications, NAFLD, prostate cancer status post surgery, urolithiasis on preventative bicarb Rx, essential tremors, past tobacco abuse. Recent overnight confinement under Orthopedics service for elective right total knee replacement from September 15-2023. Patient discharged home yesterday. Dose initiated prior to discharge. Hemoglobin 10.9 from 14 preop. Patient discharged on prednisone course to start tomorrow morning to prevent an allergic rash as per patient account. Patient felt lightheaded on getting up at home after waking up this afternoon. [place] like he was going to pass out. Chills as per patient. Transient syncopal event witnessed by family. Patient fell on his daughter who made sure patient did not fall on postop right leg. Patient woke up with worsening pain on right knee. Denies headache, chest pain, cough, SOB. No witnessed seizures, tongue biting or incontinence. Patient brought to the ER for evaluation. Medical History as above Surgical History : Prostate surgery, knee surgeries Family History : Hypertension past tobacco abuse, Personal/Social history : Occasional EtOH intake, retired from heavy machinery work Admission Exam Per Admitting Provider Physical Exam: GENERAL: Comfortable, slightly anxious, no respiratory distress SKIN: Pallor, warm HEENT: Bespectacled, pale palpebral conjunctivae, no ptosis, dry buccal mucosa NECK : Supple, no tenderness CHEST : CTA, no tenderness HEART : RRR, no obvious murmurs ABDOMEN: Some distention, nontender EXTREMITIES : RLE splint, no other conspicuous deformities noted NEUROLOGIC : Coherent, no facial asymmetry, rest tremors noted, no other gross focality Principal Diagnosis Syncope likely secondary to postural hypotension, recent right leg surgery on 09/15/2024 Discharge Exam Lying in bed without any acute distress Constitutional well developed and well nourished; not ill appearing Eyes PERRL, conjunctivae normal, anicteric sclerae ENMT external ear and nose normal, oropharynx normal Neck trachea midline, no thyromegaly Respiratory no respiratory distress Auscultation: lungs clear to auscultation bilaterally Cardiovascular Rate/Rhythm: regular rate and regular rhythm; not tachycardic Heart Sounds: normal S1 and normal S2; no murmur Extremities: no edema Gastrointestinal (Abdomen) Inspection/Auscultation: normal bowel sounds; abdomen not distended Percussion/Palpation: abdomen soft; abdomen nontender Neurologic normal touch/pain/proprioception and moves all extremities; no focal motor deficits Psychiatric A+Ox3, euthymic affect Lymphatic no cervical or axillary lymphadenopathy Discharge Data Allergies Allergy/AdvReac Type Severity Reaction Status Date / Time bee venom protein (honey bee) Allergy Severe Anaphylaxis Verified 09/15/24 05:42 ciprofloxacin Allergy Intermediate Hives Verified 09/15/24 05:42 pioglitazone [From Actos] Allergy Intermediate Rash Verified 09/15/24 05:42 potassium citrate Allergy Intermediate Hives, Verified 09/15/24 05:42 [From Urocit-K 5] blisters Consultations 09/16/24 21:00 ED Decision to Admit Stat 09/16/24 22:34 Consult Orthopedic Surgery Routine Ordered Studies 09/16/24 22:33 CT knee RT w con Stat Hospital Course (1) Syncope and collapse: Recent right knee surgery Differentials include orthostasis from hypovolemia/postop blood loss given postop anemia rule out arrhythmia, obstructive cardiac pathology hypertension, BP currently stable hyperlipidemia, on statin Rx DM2 on oral medications, well-controlled as of recent hemoglobin A1c of 6.3 last month hx NAFLD prostate cancer status post surgery urolithiasis on preventative bicarb Rx essential tremors on propranolol past tobacco abuse OBS Medical telemetry Check orthostatic vitals, TTE Follow H&H, transfuse PRBC if hemoglobin less than 7 and or for symptomatic anemia Hold Eliquis for now given progressive anemia, resume once H&H stable Orthopedics consult Re: Postop eval (Patient known to Dr. Gruber.) Basal bolus insulin, ISS BG goal 1 10-1 40, carb count coverage DVT prophylaxis. SCDs while Eliquis on hold Full code Patient daughter requesting updates providers. Ms. Emily Randle contact #[phone]. Text document was generated using [employer] voice recognition software. It may contain grammatical or spelling errors. Kindly contact undersigned for clarification of any documentation item in question. Addendum: Case discussed with on-call orthopedist, Dr. Tsang. He recommends checking postop incision. Postop incision examined at bedside noted to be well coaptated by surgical zohreh. No need for antibiotics for right knee emphysema/swelling which is expected postop as per discussion. Okay with holding Eliquis for now. Text document was generated using [employer] voice recognition software. It may contain grammatical or spelling errors. Kindly contact undersigned for clarification of any documentation item in question. Total Time Total Time Spent Total Time Spent (In Minutes): 35 minutes Discharge Plan Discharge Items Patient Disposition: Home - Self-Care Reason For Visit: SYNCOPE Discharge Diagnosis: Syncope likely secondary to postural hypotension, recent right leg surgery on 09/15/2024 Condition on Discharge: Fair Activity: Resume your previous activity Activity Comment: Continue PT as advised by orthopedic surgeon Non-emergency contact: Primary Care Provider Call non-emergency contact if: you have any medication questions and your symptoms worsen Follow-up/Referrals: Lee Reed MD [Primary Care Provider] - (Date & Time 09/21/2024 11:00 AM Provider Lee Reed DO Department General Internal Medicine [facility] ) Diet: Carb Consistent or DM2 and Heart Healthy Addtl Attending Provider Instructions: Please take precautions to avoid falls Try to drink more fluid to avoid dehydration Take your medications as advised Please keep appointments with the healthcare providers Pending Studies at Discharge: No Stand-Alone Forms: My [employer], Smoking Cessation Medications and DC Order Prescriptions: Continued atorvastatin 40 mg Tablet 40 mg PO HS metformin 500 mg Tablet 1,000 mg PO QAM glipizide 10 mg Tablet 20 mg PO QAM sodium bicarbonate 650 mg Tablet 650 mg PO TID lisinopril 5 mg Tablet 5 mg PO QAM cholecalciferol (vitamin D3) [Vitamin D3] 125 mcg (5,000 unit) Tablet 125 mcg PO Q7D Patient Comments: mondays w/supper Ozempic 1 mg/dose (2 mg/1.5 mL) Pen Injector 1 mg SUBCUT Q7D Patient Comments: propranolol 10 mg Tablet 10 mg PO TID docusate sodium 100 mg Capsule 100 mg PO BID Qty: 30 0RF Eliquis 2.5 mg Tablet 2.5 mg PO BID Qty: 60 0RF oxycodone-acetaminophen [Percocet] 5-325 mg tablet 1 - 2 tab PO Q4H PRN (Reason: pain) Qty: 18 0RF Rx Instructions: INITIAL THERAPY prednisone 10 mg tablet 10 mg PO DAILY 7 Days Qty: 7 0RF Discharge Orders: Discharge Order (Routine); Ordered 09/17/24 Ordered By: Chris Adan Admission Data Admit Date/Time: 09/16/24 22:32 Attending Provider: Chris Adan Admit Provider: Lee Granados Primary Care Provider: Lee Reed Other Providers: Lee Granados; Jarrell Gruber Other Interventions: Discharge Summary Assessment (RN) Last Done: 09/17/24 10:35
== END 2024-09-17 10:56 | disposition home or self-care (01) ==
LOC: ED 18:19 → 2N 18:19